=== PATIENT | male | born 1965 | race Caucasian/White ===

== ENCOUNTER 2016-10-04 10:06 | Inpatient (IN) | payer OTHER ==
[~2016-10-04] VITALS: Ht 180.3 cm; Wt 93.2 kg
[2016-10-04] VITALS (11 sets, daily range): BP systolic 118–174; BP diastolic 74–95
[2016-10-04] MEDS ORDERED: NS IV 1000 ML 1,000 ML IV SCH (10:44)
[2016-10-04] MEDS ORDERED: ONDANSETRON 4 MG/2 ML (SDV) Z0FRAN IVP PRN (10:45)
[2016-10-04] MEDS ORDERED: PATIENT MAY USE OWN MEDS, ALL PO SCH ×2 (10:45→15:45)
[2016-10-04] MEDS ORDERED: morphine INJ 10 MG/ML 1ML (SYR OR VIAL) IVP PRN (10:45)
[2016-10-04] MEDS ORDERED: NITROGLYCERIN SUBLINGUAL 0.4 MG TAB (NITROSTAT) SL PRN (10:45)
--- NOTE | 2016-10-04 10:50 | History & Physical-Hospitalist ---
HPI History of Present Illness: HPI/Chief Complaint CC: Chest pain HPI: This is a 51-year-old white male clinic patient of Dr. Lundberg's that [facility] the presents as a transfer to higher level of care for cardiology management due to elevated troponin with chest pain. He has a history of CAD with previous 2 stents placed at [facility] in [place] in 2010 and began having chest pain with the minimal activity at home prompted Dr. Lundberg to order labs at [facility] and the troponin was 0.082 but repeat this morning was 0.239 so she was instructed the patient to report to [facility] ER for further evaluation. EKG obtained showed no significant changes from prior and there was no elevation in the ST segments. He does have history of diabetes mellitus and currently cardiology is prepared for further evaluation likely cardiac catheterization. Source: patient Exam Limitations: no limitations Date Seen 10/04/16 Attending Physician Sera Milian Lisa A MD Referring Physician Date of Admission Home Medications & Allergies Home Medications Reviewed patient Home Medication Reconciliation Form Allergies Coded Allergies: No Allergy Information Available (Unverified , 10/04/16) Past Htmcsmz-Gkiozj-Nnckts Hx Patient Social History Employed/Student: unemployed Surgeries HX Surgeries: Yes Surgeries: Coronary Stent Respiratory Hx Respiratory Disorders: No Cardiovascular Hx Cardiovascular Disorders: Yes Cardiac Disorders: Coronary Artery Disease, High Cholesterol, Hypertension Neurological Hx Neurological Disorders: No Genitourinary Hx Genitourinary Disorders: No Gastrointestinal Hx Gastrointestinal Disorders: No Musculoskeletal Hx Musculoskeletal Disorders: No Endocrine Hx Endocrine Disorders: Yes Endocrine Disorders: Diabetes, Non-Insulin dep HEENT HX ENT Disorders: No Cancer Hx Cancer: No Review of Systems Constitutional: see HPI weakness EENTM: no symptoms reported Respiratory: dyspnea on exertion Cardiovascular: chest pain Gastrointestinal: no symptoms reported Genitourinary: no symptoms reported Musculoskeletal: no symptoms reported Skin: no symptoms reported Psychiatric/Neurological: No Symptoms Reported All Other Systems Reviewed Negative Unless Noted: Yes Physical Exam Physical Exam Vital Signs Capillary Refill : General Appearance: No Apparent Distress WD/WN Eyes: Bilateral Eye Normal Inspection, Bilateral Eye PERRL HEENT: PERRL/EOMI Normal ENT Inspection Pharynx Normal Neck: Full Range of Motion Normal Inspection Non Tender Supple Carotid Bruit Respiratory: Chest Non Tender Lungs Clear Normal Breath Sounds No Accessory Muscle Use No Respiratory Distress Cardiovascular: Regular Rate, Rhythm No Edema No Gallop No JVD No Murmur Normal Peripheral Pulses Gastrointestinal: Normal Bowel Sounds No Organomegaly No Pulsatile Mass Non Tender Soft Back: Normal Inspection No CVA Tenderness No Vertebral Tenderness Extremity: Normal Capillary Refill Normal Inspection Normal Range of Motion Non Tender No Calf Tenderness No Pedal Edema Neurologic/Psychiatric: Alert Oriented x3 No Motor/Sensory Deficits Normal Mood/Affect Skin: Normal Color Warm/Dry Lymphatic: No Adenopathy Assessment/Plan Admission Diagnosis Assessment: Non-ST elevation HI CAD with previous stents placed [address] [facility] in [place] 2010 Diabetes mellitus Assessment and Plan Plan: Appreciate cardiology management and likely will require cardiac catheter Monitor diabetes SERA MILIAN DO Oct 04, 2016 10:50
[2016-10-04] MEDS ORDERED: HEParin DRIP 25000 UNIT/500ML 500 ML IV SCH (11:49)
[2016-10-04] MEDS ORDERED: HEParin 1000 UNIT/ML (10ML VIAL) FOR BOLUS IV SCH (12:00)
--- NOTE | 2016-10-04 12:24 | Consultation-Cardiology ---
HPI-Cardiology Cardiology Consultation: Date of Consultation 10/04/16 Date of Admission Attending Physician Sera Milian DO Admitting Physician Latosha Lundberg MD Consulting Physician Teo SARMIENTO MD HPI: Chief Complaint: epigastric discomfort, chest pressure this is a 51-year-old gentleman with history of diabetes and significant coronary artery disease. He previously had PCI with 2 stents a few years ago. He has not seen a flatware maker since 2010. He presented with significant indigestion, epigastric discomfort and chest pressure. He thought his symptoms were acid reflux and he took Nexium. He has had previous "acid reflux" symptoms in the recent past but his current symptoms were much worse. No radiation. No exacerbating or relieving factors. No clear chest pain, shortness of breath. When I spoke to the referring physician from [facility], I requested bolus aspirin and Plavix and heparin 5000 units. I saw the patient as soon as he reached our hospital. His symptoms were much better. Review of Systems-Cardiology Review of Systems Constitutional: No As described under HPI, No no symptoms reported, No chills, No fever, No lightheadedness, No malaise, No tiredness, No weight loss, No weight gain, No other Eyes: No As described under HPI, No no symptoms reported, No blindness, No blurred vision, No contact lenses, No drainage, No decreased acuity, No foreign body sensation, No glasses, No inflammation, No pain, No photophobia, No previous injury, No shadows, No tunnel vision, No other, No vision change Ears/Nose/Throat: No As described under HPI, No no symptoms reported, No chronic hearing loss, No epistaxis, No ear discharge, No ear pain, No loose teeth, No mouth pain, No mouth swelling, No nasal drainage, No nose pain, No recent hearing loss, No throat pain, No throat swelling, No ulcerations, No other Respiratory: No no symptoms reported, No As described under HPI, No cough, No orthopnea, No shortness of breath, No SOB with excertion, No SOB at rest, No stridor, No wheezing, No other Cardiovascular: As described under HPI Gastrointestinal: As described under HPI Genitourinary: No no symptoms reported, No As described under HPI, No burning, No dysuria, No discharge, No frequency, No flank pain, No hematuria, No incontinence, No pain, No urgency, No other, No urine frequency changes, No urine coloration changes Musculoskeletal: No no symptoms reported, No As describe under HPI, No back pain, No gout, No joint pain, No joint swelling, No muscle pain, No muscle stiffness, No neck pain, No other Skin: No no symptoms reported, No As described under HPI, No change in color, No change in hair/nails, No dryness, No lesions, No lumps, No rash, No other, No skin related problems, No ulcerations, No rash on exposed areas, No ulcerations on exposed areas Psychiatric/Neurological: No As described under HPI, No anxiety, No depression , No emotional problems, No focal weakness, No headache, No no symptoms reported , No numbness, No other, No pre-existing deficit, No seizure, No syncope, No tingling, No tremors, No weakness Hematologic: No no symptoms reported, No As described under HPI, No anemia, No blood clots, No easy bleeding, No easy bruising, No swollen glands, No other, No bleeding abnormalities All Other Systems Reviewed Negative Unless Noted: Yes OSS-[id number]-Vyadql Hx Patient Social History Employed/Student: unemployed Past Medical History PMH As described under Assessment. Allergies and Home Medications Allergies Coded Allergies: No Allergy Information Available (Unverified , 10/04/16) Physical Exam-Cardiology Physical Exam Vital Signs/I&O Capillary Refill : Constitutional: appears stated ageNo apparent distress, well-developed well- nourished HEENT: No PERRL, No normal ENT inspection, No TMs normal, No pharynx normal, No scleral icterus (R), No scleral icterus (L), No pale conjunctivae (R), No pale conjunctivae (L), No photophobia, No TM abnormal (R), No TM abnormal (L), No pharyngeal erythema, No tonsillar exudate, No other, No discharge, No EOMI, No hearing is well preserved, No hard of hearing, No oral hygience is good, No ulceration, No xanthelasmas are seen Neck: No carotid bruit, carotid pulses are 2 + bilaterally Respiratory: No accessory muscle use, No respiratory distress, No chest tender , No chest expansion is symmetric, No chest is bilaterally symmetric, No lungs clear to percussion, No lungs clear to auscultation, No crackles, No rhonchi, No rales, No stridor, No wheezing, No pleural rub, No other Cardiovascular: No regular rate-rhythm, No irregularly irregular, No extra beats, No parasternal heave is noted, No JVD, No edema, No bradycardia, No tachycardia, No point of maximal impulse, No cardiac thrills are palpable, No S1 and S2, No gallop/S3, No gallop/S4, No diastolic murmur, No systolic murmur, No friction rub, No click, No other Gastrointestinal: No tender, No soft, No round, No distended, No pulsatile mass , No organomegaly, No guarding, No rebound, No tenderness, No hernia, No mass, No audible bowel sounds, No abnormal bowel sounds, No abdominal bruits, No spleenomegaly, No other Rectal: deferred Extremities: No normal range of motion, No non-tender, No normal inspection, No pedal edema, No calf tenderness, No normal capillary refill, No pelvis stable , No calf tenderness, No inflammation, No pedal edema, No slow capillary refill , No swelling, No other, No abrasion, No clubbing, No cyanosis, No ecchymosis, No laceration, No no lower extremity edema bilateral, No significant edema, No tenderness, No wound Neurologic/Psychiatric: No certified endoscopy technician II-XII nml as tested, No no motor/sensory deficits, alertNo normal mood/affect, oriented x 3No abnormal cerebellar tests , No abnormal certified endoscopy technician II-XII, No abnormal gait, No aphasia, No EOM palsy, No facial droop, No motor weakness, No sensory deficit, No depressed affect, No disoriented x 3, No other, No grossly intact, power is 5/5 both on sides Skin: No normal color, No warm/dry, No cyanosis, No cool, No diaphoresis, No damp, No ecchymosis, No jaundice, No mottled, No pallor, No rash, No tattoos/ piercings, No ulcerations, No rash on exposed areas, No ulcerations on exposed areas, No other ECG Impression ECG Initial ECG Rhythm: Normal Sinus Initial ECG Impression: Nonspecific Changes A/P-Cardiology Assessment/Admission Diagnosis non-ST elevation AK, diabetes, hypertension, hyperlipidemia Plan I spoke at length with the patient and the family. He has atypical symptoms which can occur in diabetic patients. Cardiac enzymes are abnormal. Working diagnosis is non-ST elevation AK. Coronary angiography is recommended. I discussed at length about coronary angiography and all risks and complications were explained in detail. Recent complication included bleeding, vascular damage, CVA, AK and even . Once the patient understood all the risks associated, informed consent will be signed. We will arrange coronary angiography and possible intervention this afternoon. We will continue dual antiplatelet therapy, anti-thrombin therapy with heparin, statin, beta cristiano and MANUEL inhibitor. Thank you for your consultation. Please call me if you have any questions. Alberto Sarmiento MD, FACP, FACC, FSCAI, FHRS, CCDS Interventional Cardiology Cardiac Electrophysiology Vascular Medicine and Endovascular Interventions Teo SARMIENTO MD Oct 04, 2016 12:24
--- NOTE | 2016-10-04 12:25 | Cardiac Procedure Note-CS/ASA ---
Pre-Procedure Note Pre-Op Procedure Note H&P Reviewed The H&P was reviewed, patient examined and no changes noted. Date H&P Reviewed: Oct 04, 2016 Time H&P Reviewed: 12:25 Conscious Sedation Pre-Proced Time Reviewed: 12:25 ASA Class: 3 Airway Mallampati Classification: (chevak appropriate class) I. II. III, IV Lungs Heart ASA score ASA 1: a normal healthy patient ASA 2: a patient with a mild systemic disease (mid diabetes, controlled hypertension, obesity ASA 3: a patient with a severe systemic disease that limits activity (angina , COPD, prior Myocardial infarction) ASA 4: a patient with an incapacitating disease that is a constant threat to life (CHF, renal failure) ASA 5: a moribund patient not expected to survive 24 hrs. (ruptured aneurysm) ASA 6: a declared brain patient whose organs are being harvested. For emergent operations, add the letter E after the classification Grade 1 Sedation Plan: Analgesia, Amnesia, Plan communicated to team members, Discussed options with patient/fam, Discussed risks with patient/fam Note The patient is an appropriate candidate to undergo the planned procedure, sedation, and anesthesia. The patient immediately re-assessed prior to indication. Teo MAIN MD Oct 04, 2016 12:25
--- NOTE | 2016-10-04 12:35 | Diagnostic Imaging Report ---
INDICATION: Reflux for six days. Chest pain. EXAMINATION: Chest dated 10/04/2016. FINDINGS: The heart is slightly prominent. Pulmonary vasculature is unremarkable in appearance. There is a vague rounded density in the right perihilar region which could be a vessel on end with a small nodule not excluded. The remaining lungs are clear. There is no pneumothorax. No effusions. No infiltrates. IMPRESSION: 1. Rounded density right perihilar region, likely a vessel on end. See above discussion. Followup if no priors available for comparison recommended. If this persists or increases in size, CT imaging could exclude a lung nodule. 2. Mild prominence of the heart. Dictated by: Dictated on workstation # [id number]
[2016-10-04] MEDS ORDERED: LIDOCAINE 1% INJ 20 ML (XYLOCAINE) VIAL ONE (12:49)
[2016-10-04] MEDS ORDERED: MIDAZOLAM 5 MG/5 ML (VERSED) VIAL ONE (12:49)
[2016-10-04] MEDS ORDERED: fentaNYL INJECTION 100 MCG/2 ML AMP ONE (12:49)
[2016-10-04] MEDS ORDERED: NS IV 1000 ML 1,000 ML ONE ×2 (12:50→15:34)
[2016-10-04] MEDS ORDERED: HEParin (CATH LAB) 2,000 ML IV ONE (12:50)
[2016-10-04 12:52] LABS: BASOPHILS % (AUTO) 0 % (0-10); EOSINOPHILS # (AUTO) 0.3 10^3/uL (0.0-0.3); EOSINOPHILS % (AUTO) 4 % (0-10); LYMPHOCYTES # (AUTO) 1.7 X 10^3 (1.0-4.0); LYMPHOCYTES % (AUTO) 24 % (12-44); MEAN CORPUSCULAR HEMOGLOBIN 29 PG (25-34); MEAN CORPUSCULAR HGB CONC 35 G/DL (32-36); MEAN CORPUSCULAR VOLUME 83 FL (80-99); MEAN PLATELET VOLUME 9.5 FL (7.4-10.4); MONOCYTES # (AUTO) 0.5 X 10^3 (0.0-1.0); MONOCYTES % (AUTO) 7 % (0-12); NEUTROPHILS # (AUTO) 4.7 X 10^3 (1.8-7.8); NEUTROPHILS % (AUTO) 65 % (42-75); PLATELET COUNT 211 10^3/uL (130-400); RED BLOOD COUNT 4.57 10^6/uL (4.35-5.85); RED CELL DISTRIBUTION WIDTH 13.2 % (10.0-14.5); WHITE BLOOD COUNT 7.2 10^3/uL (4.3-11.0)
[2016-10-04] MEDS ORDERED: NITROGLYCERIN DRIP 25 MG/D5W 250 ML IV ONE (12:52)
[2016-10-04] MEDS ORDERED: VERAPAMIL 5 MG/2 ML (CALAN) VIAL IV ONE (12:52)
[2016-10-04 13:01] LABS: PROTHROMBIN TIME PATIENT 12.6 SEC (12.2-14.7)
[2016-10-04 13:10] LABS: ALANINE AMINOTRANSFERASE 9 U/L (0-55); ALBUMIN 3.9 G/DL (3.2-4.5); ANION GAP 11 MMOL/L (5-14); ASPARTATE AMINO TRANSFERASE 11 U/L (5-34); BILIRUBIN,TOTAL 0.4 MG/DL (0.1-1.0); BLOOD UREA NITROGEN 16 MG/DL (7-18); BUN/CREATININE RATIO 19; CARBON DIOXIDE 21 MMOL/L (21-32); CHLORIDE 108 MMOL/L (98-107); CREATININE SERUM 0.86 MG/DL (0.60-1.30); GFR ESTIMATED > 60; GLUCOSE 135 MG/DL (70-105); POTASSIUM 4.2 MMOL/L (3.6-5.0); SODIUM 140 MMOL/L (135-145); TOTAL PROTEIN 6.6 G/DL (6.4-8.2)
[2016-10-04] MEDS ORDERED: ADENOSINE 3 MG/1 ML (ADENOSCAN) 30ML VIAL IV ONE (14:28)
[2016-10-04] MEDS ORDERED: MIDAZOLAM 2 MG/2 ML (VERSED) VIAL ONE (14:54)
--- NOTE | 2016-10-04 15:45 | Progress Note-Post Operative ---
Post-Operative Progess Note Pre-Operative Diagnosis non-ST elevation OK Post-Operative Diagnosis non-ST elevation OK, PTCA to OM1 Post-Op Procedure Note Date of Procedure: Oct 04, 2016 Name of Procedure: 1. Coronary angiography. 2. Left heart catheterization. 3. FFR to the RCA. 4. PTCA to OM1. Procedure Note/Findings severe diffuse disease in the entire segment of the LAD. Moderate to severe disease in the mid RCA. Severe diffuse disease in distal PDA and PL branch. FFR to the mid RCA lesions showed 0.86 which is acceptable therefore PCI deferred. Severe ostial OM1 stenosis successfully treated with PTCA. Severe in-stent restenosis of a previous stent in OM1 successfully treated with PTCA. Normal LV function. Anesthesia Type local anesthesia and conscious sedation Estimated blood loss (mL): 30 mL Packing: none Specimen(s) collected none Teo MAIN MD Oct 04, 2016 15:45
[2016-10-04] MEDS ORDERED: LOVA20TA2 PO (16:28)
[2016-10-04] MEDS ORDERED: CARV12.53 PO (16:28)
[2016-10-04] MEDS ORDERED: CARV25TA PO (16:28)
[2016-10-04] MEDS ORDERED: ASPI-586 PO (16:28)
[2016-10-04] MEDS ORDERED: METF1000 PO (16:28)
[2016-10-04] MEDS ORDERED: METF500T4 PO (16:28)
[2016-10-04] MEDS ORDERED: MULT-517 PO (16:28)
[2016-10-04] MEDS ORDERED: AMLO5TAB2 PO (16:28)
[2016-10-04] MEDS ORDERED: SITA50TA PO (16:28)
[2016-10-04] MEDS ORDERED: LORA10CA PO (16:29)
[2016-10-04] MEDS: NS IV 1000 ML 1,000 ML IV SCH (16:48)
[2016-10-04] MEDS ORDERED: ATORVASTATIN 80 MG (LIPITOR) TABLET PO SCH (21:00)
[2016-10-04] MEDS: meTOprolol TARTRATE 25 MG (LOPRESSOR) TABLET PO SCH (22:56)
[2016-10-05] VITALS: BP 127/76
[2016-10-05] MEDS: NS IV 1000 ML 1,000 ML IV SCH ×2 (02:00→11:41)
[2016-10-05 04:00] VITALS: BP 124/77
[2016-10-05 04:27] LABS: MEAN PLATELET VOLUME 9.5 FL (7.4-10.4); RED BLOOD COUNT 4.13 10^6/uL (4.35-5.85); RED CELL DISTRIBUTION WIDTH 13.3 % (10.0-14.5); WHITE BLOOD COUNT 8.4 10^3/uL (4.3-11.0)
[2016-10-05 04:57] LABS: ANION GAP 9 MMOL/L (5-14); BLOOD UREA NITROGEN 14 MG/DL (7-18); BUN/CREATININE RATIO 15; CALCIUM 8.5 MG/DL (8.5-10.1); CARBON DIOXIDE 23 MMOL/L (21-32); CHLORIDE 107 MMOL/L (98-107); CHOLESTEROL 165 MG/DL (< 200); CREATININE SERUM 0.91 MG/DL (0.60-1.30); DIRECT LDL 110 MG/DL (1-129); GFR ESTIMATED > 60; GLUCOSE 109 MG/DL (70-105); POTASSIUM 3.8 MMOL/L (3.6-5.0); SODIUM 139 MMOL/L (135-145); TRIGLYCERIDES 122 MG/DL (<150); VLDL CHOLESTEROL 24 MG/DL (5-40)
[2016-10-05 05:03] LABS: TROPONIN I < 0.30 NG/ML (<0.30)
[2016-10-05] MEDS ORDERED: FLU TRIvalent (5 YOA+) 2016-17 (AFLURIA) 0.5 ML IM ONE (07:45)
[2016-10-05 08:22] VITALS: BP 131/77
[2016-10-05] MEDS: meTOprolol TARTRATE 25 MG (LOPRESSOR) TABLET PO SCH (08:47)
[2016-10-05] MEDS ORDERED: CLOPIDOGREL 75 MG (PLAVIX) TABLET PO SCH (09:00)
[2016-10-05] MEDS ORDERED: ASPIRIN E.C. 81 MG (ECOTRIN) TAB PO SCH (09:00)
[2016-10-05] MEDS ORDERED: ASPIRIN E.C. 325 MG (ECOTRIN) TABLET PO SCH (09:00)
[2016-10-05] MEDS ORDERED: lisINopril 5 MG (PRINIVIL) TABLET PO SCH (09:00)
--- NOTE | 2016-10-05 10:47 | Discharge Summary-Hospitalist ---
Diagnosis/Chief Complaint Date of Admission Oct 04, 2016 at 11:15 Date of Discharge 10/05/2016 Discharge Date: Oct 05, 2016 Admission Diagnosis Assessment: Non-ST elevation PR CAD with previous stents placed 2 at [facility] 2010 Diabetes mellitus Discharge Diagnosis Assessment: Non-ST elevation PR s/p balloon angiography CAD with previous stents placed 2 at [facility] 2010 Diabetes mellitus Reason Hospital Visit/Course CC: Chest pain HPI: This is a 51-year-old white male clinic patient of Dr. Lundberg's [facility] the presents as a transfer to higher level of care for cardiology management due to elevated troponin with chest pain. He has a history of CAD with previous 2 stents placed at [facility] in 2010 and began having chest pain with the minimal activity at home. Dr Farias ordered troponins as outpatient which trended up to 0.239 prompting him to present to [facility] for evaluation. EKG was unchanged from past with changes in the ST segments. He was transfer to [facility] for cardiology evaluation and cardiac catheterization. Discharge Summary Procedures Cardiac Catheterization, PCI of OM1 Consultations Dr. Sarmiento, Cardiology Discharge Physical Examination Allergies: Coded Allergies: No Allergy Information Available (Unverified , 10/04/16) Vitals & I&Os Vital Signs Date Time Temp Pulse Resp B/P Pulse Ox O2 Delivery O2 Flow Rate FiO2 10/05/16 09:00 97 Room Air 10/05/16 08:22 98.5 76 18 131/77 10/04/16 14:20 2.00 Hospital Course Mr Nolasco was admitted for cardiac catheterization and was found to have restenosis of OM1 with balloon angiography. His symptoms of chest pain improved significantly following the procedure and his vitals and labs were stable throughout the night. He was medically optimized prior to discharge with DAPT, high intensity statin, beta cristiano, and MANUEL-I. Labs (last 24 hrs) Laboratory Tests 10/04/16 12:43: Activated Partial Thromboplast Time 38H, Alanine Aminotransferase (ALT/SGPT) 9, Albumin 3.9, Alkaline Phosphatase 55, Anion Gap 11, Aspartate Amino Transf (AST/ SGOT) 11, BUN/Creatinine Ratio 19, Basophils # (Auto) 0.0, Basophils (%) (Auto) 0, Blood Urea Nitrogen 16, Calcium Level 9.0, Carbon Dioxide Level 21, Chloride Level 108H, Creatinine 0.86, Eosinophils # (Auto) 0.3, Eosinophils (%) (Auto) 4 , Estimat Glomerular Filtration Rate > 60, Glucose Level 135H, Hematocrit 38L, Hemoglobin 13.1L, INR Comment 1.0, Lymphocytes # (Auto) 1.7, Lymphocytes (%) ( Auto) 24, Mean Corpuscular Hemoglobin 29, Mean Corpuscular Hemoglobin Concent 35 , Mean Corpuscular Volume 83, Mean Platelet Volume 9.5, Monocytes # (Auto) 0.5, Monocytes (%) (Auto) 7, Neutrophils # (Auto) 4.7, Neutrophils (%) (Auto) 65, Platelet Count 211, Potassium Level 4.2, Prothrombin Time 12.6, Red Blood Count 4.57, Red Cell Distribution Width 13.2, Sodium Level 140, Total Bilirubin 0.4, Total Protein 6.6, Troponin I < 0.30, White Blood Count 7.2 10/04/16 16:47: Glucometer 97 10/04/16 17:18: Troponin I < 0.30 10/04/16 22:57: Glucometer 122H 10/05/16 03:50: Anion Gap 9, BUN/Creatinine Ratio 15, Blood Urea Nitrogen 14, Calcium Level 8.5 , Carbon Dioxide Level 23, Chloride Level 107, Cholesterol Level 165, Creatinine 0.91, Estimat Glomerular Filtration Rate > 60, Glucose Level 109H, HDL Cholesterol 34L, Hematocrit 35L, Hemoglobin 11.9L, LDL Cholesterol Direct 110, Mean Corpuscular Hemoglobin 29, Mean Corpuscular Hemoglobin Concent 34, Mean Corpuscular Volume 84, Mean Platelet Volume 9.5, Platelet Count 216, Potassium Level 3.8, Red Blood Count 4.13L, Red Cell Distribution Width 13.3, Sodium Level 139, Triglycerides Level 122, Troponin I < 0.30, VLDL Cholesterol 24, White Blood Count 8.4 Pending Labs Laboratory Tests 10/05/16 03:50: Anion Gap 9, BUN/Creatinine Ratio 15, Blood Urea Nitrogen 14, Calcium Level 8.5 , Carbon Dioxide Level 23, Chloride Level 107, Cholesterol Level 165, Creatinine 0.91, Estimat Glomerular Filtration Rate > 60, Glucose Level 109, HDL Cholesterol 34, Hematocrit 35, Hemoglobin 11.9, LDL Cholesterol Direct 110, Mean Corpuscular Hemoglobin 29, Mean Corpuscular Hemoglobin Concent 34, Mean Corpuscular Volume 84, Mean Platelet Volume 9.5, Platelet Count 216, Potassium Level 3.8, Red Blood Count 4.13, Red Cell Distribution Width 13.3, Sodium Level 139, Triglycerides Level 122, Troponin I < 0.30, VLDL Cholesterol 24, White Blood Count 8.4 Discussion & Recommendations Discussed need to comply with new medications at discharge and to follow up with his PCP and Heel Attacher this week. He did report he does not have insure and will have difficulty affording his medications. Will attempt to fill as many from $[employer] as able but discussed risk of noncompliance with patient. Discharge Home Medications: Active Scripts Active Lisinopril 5 Mg Tablet 5 Mg PO DAILY Atorvastatin Calcium 80 Mg Tablet 80 Mg PO HS Clopidogrel (Clopidogrel Bisulfate) 75 Mg Tablet 75 Mg PO DAILY Claritin (Loratadine) 10 Mg Capsule 10 Mg PO DAILY Aspir 81 (Aspirin) 81 Mg Tablet.dr 81 Mg PO DAILY Carvedilol 25 Mg Tablet 25 Mg PO DAILY Carvedilol 12.5 Mg Tablet 12.5 Mg PO HS Lovastatin 20 Mg Tablet 20 Mg PO DAILY Metformin HCl 500 Mg Tablet 500 Mg PO UD WITH SUPPER Metformin HCl 1,000 Mg Tablet 1,000 Mg PO BID Januvia (Sitagliptin Phosphate) 50 Mg Tablet 50 Mg PO DAILY Men's Multi-Vitamin (Multivitamin) 1 Each Tablet 1 Each PO DAILY Of note: lovastatin not on discharge med list. Unable to delete from above list. Condition at discharge Stable Instructions to patient/family Please see electonic discharge instructions given to patient. Clinical Quality Measures DVT/VTE Risk/Contraindication: Risk Factor Score Per Nursin RFS Level Per Nursing on Admit: 1=Low/No VTE PPX NISH SCHULTZ MD Oct 05, 2016 10:47
[2016-10-05] MEDS ORDERED: CLOP75TA28 PO (11:20)
[2016-10-05] MEDS ORDERED: LISI-556 PO (11:20)
[2016-10-05] MEDS ORDERED: ATOR80TA76 PO (11:20)
[2016-10-05 12:00] VITALS: BP 124/76
--- NOTE | 2016-10-05 12:16 | Cardiology Progress Note ---
Cardiology SOAP Progress Note Subjective: no cardiac complaints Objective: I&O/Vital Signs Vital Sign - Last 12Hours 10/05/16 10/05/16 12:00 12:35 Temp 98.5 Pulse 72 72 Resp 18 18 B/P 124/76 124/76 Pulse Ox 97 97 O2 Delivery Room Air O2 Flow Rate 2.00 Intake and Output 10/04/16 23:59 Intake Total 1190 ml Output Total 200 ml Balance 990 ml Weight (Pounds): 205 Weight (Ounces): 8.0 Weight (Calculated Kilograms): 93.055859 Constitutional: appears stated ageNo apparent distress, well-developed well- nourished Respiratory: No accessory muscle use, No respiratory distress, No chest tender , No chest expansion is symmetric, No chest is bilaterally symmetric, No lungs clear to percussion, No lungs clear to auscultation, No crackles, No rhonchi, No rales, No stridor, No wheezing, No pleural rub, No other Cardiovascular: No regular rate-rhythm, No irregularly irregular, No extra beats, No parasternal heave is noted, No JVD, No edema, No bradycardia, No tachycardia, No point of maximal impulse, No cardiac thrills are palpable, No S1 and S2, No gallop/S3, No gallop/S4, No diastolic murmur, No systolic murmur, No friction rub, No click, other (right radial pulse normal) Gastrointestional: No tender, No soft, No round, No distended, No pulsatile mass, No organomegaly, No guarding, No rebound, No tenderness, No hernia, No mass, No audible bowel sounds, No abnormal bowel sounds, No abdominal bruits, No spleenomegaly, No other Extremities: No normal range of motion, No non-tender, No normal inspection, No pedal edema, No calf tenderness, No normal capillary refill, No pelvis stable , No calf tenderness, No inflammation, No pedal edema, No slow capillary refill , No swelling, No other, No abrasion, No clubbing, No cyanosis, No ecchymosis, No laceration, No no lower extremity edema bilateral, No significant edema, No tenderness, No wound Neurologic/Psychiatric: No musical string maker II-XII nml as tested, No no motor/sensory deficits, alertNo normal mood/affect, oriented x 3No abnormal cerebellar tests , No abnormal musical string maker II-XII, No abnormal gait, No aphasia, No EOM palsy, No facial droop, No motor weakness, No sensory deficit, No depressed affect, No disoriented x 3, No other, No grossly intact, power is 5/5 both on sides Skin: No normal color, No warm/dry, No cyanosis, No cool, No diaphoresis, No damp, No ecchymosis, No jaundice, No mottled, No pallor, No rash, No tattoos/ piercings, No ulcerations, No rash on exposed areas, No ulcerations on exposed areas, No other Results/Procedures: Labs Laboratory Tests 10/04/16 22:57: Glucometer 122H 10/05/16 03:50: Anion Gap 9, BUN/Creatinine Ratio 15, Blood Urea Nitrogen 14, Calcium Level 8.5 , Carbon Dioxide Level 23, Chloride Level 107, Cholesterol Level 165, Creatinine 0.91, Estimat Glomerular Filtration Rate > 60, Glucose Level 109H, HDL Cholesterol 34L, Hematocrit 35L, Hemoglobin 11.9L, LDL Cholesterol Direct 110, Mean Corpuscular Hemoglobin 29, Mean Corpuscular Hemoglobin Concent 34, Mean Corpuscular Volume 84, Mean Platelet Volume 9.5, Platelet Count 216, Potassium Level 3.8, Red Blood Count 4.13L, Red Cell Distribution Width 13.3, Sodium Level 139, Triglycerides Level 122, Troponin I < 0.30, VLDL Cholesterol 24, White Blood Count 8.4 10/05/16 11:25: Glucometer 155H A/P: Assessment/Dx: non-ST elevation MA, diabetes, hypertension, hyperlipidemia Plan: Coronary angiography with PTCA to ostial OM1 and to ISR in OM1 stent. Good results. No bump in troponin post PTCA. Dual anti-platelet therapy x 1 year. BB, MANUEL inhibitor, high dose statin. Can be discharged to follow with Dr Lundberg and can follow me for cardiology services if required. Appreciate Dr Milian and Dr Silveira help in this patient. Thank you for your consultation. Please call me if you have any questions. Alberto Sarmiento MD, FACP, FACC, FSCAI, FHRS, CCDS Interventional Cardiology Cardiac Electrophysiology Vascular Medicine and Endovascular Interventions Teo SARMIENTO MD Oct 05, 2016 12:16 Sodium Level 139, Triglycerides Level 122, Troponin I < 0.30, VLDL Cholesterol 24, White Blood Count 8.4 10/05/16 11:25: Glucometer 155H A/P: Assessment/Dx: non-ST elevation MA, diabetes, hypertension, hyperlipidemia Plan: I spoke at length with the patient and the family. He has atypical symptoms which can occur in diabetic patients. Cardiac enzymes are abnormal. Working diagnosis is non-ST elevation MA. Coronary angiography is recommended. I discussed at length about coronary angiography and all risks and complications were explained in detail. Recent complication included bleeding, vascular damage, CVA, MA and even . Once the patient understood all the risks associated, informed consent will be signed. We will arrange coronary angiography and possible intervention this afternoon. We will continue dual antiplatelet therapy, anti-thrombin therapy with heparin, statin, beta cristiano and MANUEL inhibitor. Thank you for your consultation. Please call me if you have any questions. Alberto Sarmiento MD, FACP, FACC, FSCAI, FHRS, CCDS Interventional Cardiology Cardiac Electrophysiology Vascular Medicine and Endovascular Interventions Teo SARMIENTO MD Oct 05, 2016 12:16
[2016-10-05 12:35] VITALS: BP 124/76
--- NOTE | 2016-10-05 16:13 | CARDIAC CATHETERIZATION ---
CORONARY ANGIOGRAPHY AND PTCA REPORT PROCEDURE PHYSICIAN: MANUEL MAIN DATE OF PROCEDURE: 10/04/2016 INDICATION: Non-ST elevation VA. PREOPERATIVE DIAGNOSIS: Non-ST elevation VA. POSTOPERATIVE DIAGNOSIS: Non-ST elevation VA, balloon angioplasty to first obtuse marginal artery. FFR to the RCA. HISTORY: Mr. Nolasco is a 51-year-old gentleman who has significant history of diabetes, hypertension, hyperlipidemia, coronary artery disease with two stents placed 3 or 4 years ago. He presented to [facility] with atypical symptoms of chest pressure and indigestion. Troponins were positive. Working diagnosis was non-ST elevation VA and he was transferred urgently to our hospital. Urgent coronary angiography was recommended. He was given a bolus of aspirin, Plavix and heparin. PROCEDURE PERFORMED: 1. Coronary angiography. 2. Left heart catheterization. 3. FFR of the mid RCA. 4. PTCA to in-stent restenosis in the distal OM1. 5. PTCA to ostium of 1st OM. SPECIMENS: None. COMPLICATIONS: None. ESTIMATED BLOOD LOSS: 30 mL. Anticoagulation: IV heparin. Contrast: 200 mL of Isovue. Fluoroscopy time: 23 minutes. Fluoroscopy dose: 1896 mGy PROCEDURE DETAILS: The patient was brought to the [facility] after informed consent was taken. All the risks and complications were explained in detail. He was draped and prepped in the usual sterile fashion. Access was gained in the right radial artery with a 6-Kiswahili sheath. Coronary angiography and left heart catheterization was performed with a Gordy catheter. Left coronary artery was engaged with a JL4 diagnostic catheter. FINDINGS: 1. Left heart catheterization: LV pressure 97/1 mmHg. LVEDP 9 mmHg, Aortic pressure 90/57 mmHg, normal LV function with no significant wall motion abnormalities. No gradient across the aortic valve. 2. RCA shows tandem moderate lesions in the midsegment. Midsegment severity is 50 to 70%. There is severe diffuse distal disease in the PDA as well as the PL branch with ROSIO 2 flow however, these are very small vessels with diameter around 1 to 1.5 mm 3. Left main: Patent. 4. LAD has diffuse severe disease in the entire length especially the mid and distal segments. 5. Left circumflex artery: There is no significant disease in the proximal and mid segment. There is a patent stent in the distal left circumflex artery with diffuse distal disease. There is intermediate sized first obtuse marginal artery, which has severe 90% stenosis at the ostium. There is another stent, in the mid to distal segment of this particular obtuse marginal artery, which has severe in stent stenosis 90% in the distal part of the stent. The stent seems to have jailed a previous branch which is subtotally occluded and filled by left to left collaterals. The obtuse marginal artery as well as the left circumflex artery has diffuse distal disease. Of note the collaterals from the left system to the right as well as left to left collaterals as well. RECOMMENDATIONS: 1. FFR to the mid RCA is recommended. 2. PTCA to in-stent stenosis in the obtuse marginal artery stent is recommended. 3. PTCA to the ostium of the first obtuse marginal artery is recommended. INTERVENTIONAL DETAILS: We took a JR4 guide catheter and pressure wire as a guidewire. Heparin was given for anticoagulation. ACT was over 200 seconds. There were 2 tandem lesions in the mid RCA which were both moderate to severe. Stenosis severity was 50 to 70%. There was ROSIO 2 to ROSIO 3 flow in the distal vessel. We crossed the lesion in the mid RCA and placed the wire in the PL branch. We then started adenosine at 140 mcg/kg per minute. Baseline FFR was 0.95. After 2 minutes of adenosine lowest FFR was 0.86 which is acceptable therefore PCI was deferred. The pressure wire was pulled out and angiography revealed no vascular complication. We then took an EBU 3.5 guide catheter and used the same pressure wire as a guidewire. The lesion in the left circumflex artery and the obtuse marginal artery were crossed with difficulty due to some tortuosity. The distal tip of the pressure wire which is now the guidewire was placed in the distal aspect of the obtuse marginal artery. We then took a 2.5 x 12 Emerge semi-compliant balloon. We did two inflations in the distal aspect of the obtuse marginal artery stent. The first inflation was for 14 atmospheres for 23 seconds and the second was for 12 atmospheres for 62 seconds. Some residual stenosis was noted. We then pulled the balloon back to where the severe ostial disease of the obtuse marginal artery was. We performed an inflation for 12 atmospheres at 60 seconds which showed good angiographic results. However, there either plaque displacement or spasm at the distal aspect of the balloon inflation that we just did. We therefore gave nitroglycerin 150 mcg intracoronary with some improvement. We then took the same 2 x 2.5 balloon and did a gentle inflation for 6 atmospheres for a minute with significant improvement in flow as well as no significant residual stenosis. We then took the same balloon and went into the distal aspect of the obtuse marginal artery within the in-stent restenosis segment and did a high pressure balloon dilatation at 16 atmospheres for 50 seconds. This improved the distal segment better with mild residual stenosis of around 20%. This result was acceptable. We therefore pulled the balloon and wire back and post angiography revealed ROSIO 3 flow with mild residual stenosis in the distal segment of the obtuse marginal artery stent and no significant residual stenosis in the ostium of the obtuse marginal artery. The patient tolerated the procedure well. Did not have any complication. The radial site was closed with a radial band. IMPRESSION/CONCLUSION: 1. Severe coronary artery disease with severe diffuse disease in the entire length of the LAD, which is not amendable to PCI or bypass surgery. 2. Severe in-stent restenotic of a previous obtuse marginal artery stent, severe ostial disease of the obtuse marginal artery which both lesions were successfully treated with PTCA only. Another stent in the distal left circumflex artery is patent. There is diffuse disease in the distal vessels of the left circumflex artery as well as the obtuse marginal artery. 3. RCA has tandem moderate lesions in the mid aspect, which were negative by FFR. There is diffuse severe disease in the distal PDA as well as the PLV branch. These vessels were less than 1.5 mm. therefore PCI was not entertained. The patient will continue aspirin, Plavix for at least one year. Also aggressive of prevention measures of beta cristiano, MANUEL inhibitor and high-dose statin will be recommended. The patient will be transferred back to the Stepdown and IV fluids will continue. We will check CBC, BNP and troponin in the morning. Echocardiogram will also be recommended. Job ID: [id number] Dictated Date: 10/04/2016 15:39:41 Intensive Care Medicine Specialist Date: 10/05/2016 15:39:03 / chely GRIFFIN
== END 2016-10-05 12:35 | disposition home or self-care (01) | DRG 251 ==
LOC: ICU 11:15
PROVIDERS: ADMIT Internal Medicine; ATTEND Internal Medicine
PROC: 027 Heart and Great Vessels, Dilation (ICD-10-PCS; principal; 2016-10-04)
PROC: 4A023N7 Measurement of Cardiac Sampling and Pressure, Left Heart, Percutaneous Approach (ICD-10-PCS; 2016-10-04)
PROC: B2111ZZ Fluoroscopy of Multiple Coronary Arteries using Low Osmolar Contrast (ICD-10-PCS; 2016-10-04)
DX: I21.4 Non-ST elevation (NSTEMI) myocardial infarction (principal); I25.10 Atherosclerotic heart disease of native coronary artery without angina pectoris; E11.9 Type 2 diabetes mellitus without complications; E78.00 Pure hypercholesterolemia, unspecified; E78.5 Hyperlipidemia, unspecified; I10 Essential (primary) hypertension; Z95.5 Presence of coronary angioplasty implant and graft; T82.855A Stenosis of coronary artery stent, initial encounter
CPT/HCPCS: 36415; 71010; 80048; 80053; 80061; 82962; 84484; 85025; 85027; 85347; 85610; 85730; 92920; 93005; 93458; 93571

== ENCOUNTER 2017-09-08 12:34 | Observation (INO) | payer SELFPAY ==
[2017-09-08] VITALS (8 sets, daily range): BP systolic 126–154; BP diastolic 72–83
[~2017-09-08] VITALS: Ht 180.3 cm; Wt 93.0 kg
[~2017-09-08 12:34] MED LIST: AMLO5TAB2 PO; ASPI-586 PO; ATOR80TA76 PO; CARV12.53 PO; CARV25TA PO; CLOP75TA28 PO; LISI-556 PO; LORA10CA PO; LOVA20TA2 PO; METF1000 PO; METF500T4 PO; MULT-517 PO; SITA50TA PO
[2017-09-08] MEDS ORDERED: ASPIRIN 81 MG CHEW (CHILDREN'S ASA) PO ONE (12:45)
[2017-09-08] MEDS ORDERED: NITROGLYCERIN 0.4 MG SL TABS BTL 25'S SL PRN ×2 (12:45→16:45)
--- NOTE | 2017-09-08 12:49 | ED Chest Pain ---
General Stated Complaint: LIGHT HEADED,CHEST TIGHTNESS Source: patient, old records Exam Limitations: no limitations History of Present Illness Date Seen by Provider: Sep 08, 2017 Time Seen by Provider: 12:42 Initial Comments Patient presents to ER by private conveyance with a chief complaint that about a week ago he started experiencing some sharp throbbing pain in his right sided chest. It went away on its own after about half an hour so he didn't think anything of it. However today's having lightheadedness and dizziness described as being off balance, cough, mild shortness of breath and again that right- sided chest pain that radiates from his right shoulder down to his manubrium. He is also expressing today some tightness and tenderness bilateral trapezius muscles. He has several flu exposures. He's had no fevers but he says he has had some chills. Allergies and Home Medications Allergies Coded Allergies: No Allergy Information Available (Unverified , 10/04/16) Home Medications Aspirin 81 Mg Tablet.dr, 81 MG PO DAILY, #1 Prescribed by: LATISHA NDIAYE on 10/04/16 1628 Atorvastatin Calcium 80 Mg Tablet, 80 MG PO HS, #30 Prescribed by: NISH SCHULTZ on 10/05/16 1120 Carvedilol 12.5 Mg Tablet, 12.5 MG PO HS, #1 Prescribed by: LATISHA NDIAYE on 10/04/16 1628 Carvedilol 25 Mg Tablet, 25 MG PO DAILY, #1 Prescribed by: LATISHA NDIAYE on 10/04/16 1628 Clopidogrel Bisulfate 75 Mg Tablet, 75 MG PO DAILY, #30 Prescribed by: NISH SCHULTZ on 10/05/16 1120 Lisinopril 5 Mg Tablet, 5 MG PO DAILY, #30 Prescribed by: NISH SCHULTZ on 10/05/16 1120 Loratadine 10 Mg Capsule, 10 MG PO DAILY, #1 Prescribed by: LATISHA NDIAYE on 10/04/16 1629 Metformin HCl 1,000 Mg Tablet, 1,000 MG PO BID, #1 Prescribed by: LATISHA NDIAYE on 10/04/16 1628 Metformin HCl 500 Mg Tablet, 500 MG PO UD, #1 WITH SUPPER Prescribed by: LATISHA NDIAYE on 10/04/16 1628 Multivitamin 1 Each Tablet, 1 EACH PO DAILY, #1 Prescribed by: LATISHA NDIAYE on 10/04/161627 Sitagliptin Phosphate 50 Mg Tablet, 50 MG PO DAILY, #1 Prescribed by: LATISHA NDIAYE on 10/04/168 Review of Systems Constitutional: chills, No diaphoresis, No fever, malaise EENTM: No Blurred Vision, No Double Vision Respiratory: Cough, Denies Shortness of Air, Denies Wheezing Cardiovascular: See HPI, Chest Pain, Denies Edema, Denies Palpitations, Denies Syncope Gastrointestinal: Denies Abdomen Distended, Denies Abdominal Pain, Denies Nausea Past Xzqbifc-Sviudp-Mrwjly Hx Patient Social History Alcohol Use: Denies Use Recreational Drug Use: No Smoking Status: Never a Smoker Recent Foreign Travel: No Contact w/Someone Who Travel: No Recent Hopitalizations: No Seasonal Allergies Seasonal Allergies: Yes Surgeries Surgeries: Coronary Stent Respiratory History of Respiratory Disorde: No Currently Using CPAP: No Currently Using BIPAP: No Cardiovascular History of Cardiac Disorders: Yes (2 STENTS) Cardiac Disorders: Coronary Artery Disease, High Cholesterol, Hypertension Neurological History of Neurological Disord: No Genitourinary History of Genitourinary Disor: No Gastrointestinal History of Gastrointestinal Di: No Musculoskeletal History of Musculoskeletal Dis: No Endocrine Endocrine Disorders: Diabetes, Non-Insulin dep HEENT History of HEENT Disorders: No Cancer History of Cancer: No Psychosocial History of Psychiatric Problem: No Integumentary History of Skin or Integumenta: No Family Medical History Family Medial History: Diabetes mellitus 19 FATHER 19 MOTHER G8 BROTHER Hypercholesterolemia G8 BROTHER Hypertension 19 FATHER 19 MOTHER G8 BROTHER Physical Exam Vital Signs Capillary Refill : General Appearance: No Apparent Distress, WD/WN HEENT: PERRL/EOMI, TMs Normal, Pharynx Normal, Other (nasal congestion with scant clear rhinorrhea) Neck: Full Range of Motion, Normal Inspection, Non Tender, Supple, Lymphadenopathy (L), Lymphadenopathy (R) (mild shotty bilateral lymphadenopathy) Respiratory: Chest Non Tender, Lungs Clear, Normal Breath Sounds, No Accessory Muscle Use, No Respiratory Distress Cardiovascular: Regular Rate, Rhythm, No Edema, No Gallop, No JVD, Normal Peripheral Pulses Gastrointestinal: Normal Bowel Sounds, Non Tender, Soft Neurologic/Psychiatric: Alert, Oriented x3 Skin: Normal Color, Warm/Dry Progress/Results/Core Measures Results/Orders Lab Results Laboratory Tests Test 09/08/17 13:06 Range/Units White Blood Count 8.5 4.3-11.0 10^3/uL Red Blood Count 4.54 4.35-5.85 10^6/uL Hemoglobin 12.9 L 13.3-17.7 G/DL Hematocrit 37 L 40-54 % Mean Corpuscular Volume 82 80-99 FL Mean Corpuscular Hemoglobin 28 25-34 PG Mean Corpuscular Hemoglobin Concent 35 32-36 G/DL Red Cell Distribution Width 13.1 10.0-14.5 % Platelet Count 239 130-400 10^3/uL Mean Platelet Volume 9.2 7.4-10.4 FL Neutrophils (%) (Auto) 70 42-75 % Lymphocytes (%) (Auto) 18 12-44 % Monocytes (%) (Auto) 8 0-12 % Eosinophils (%) (Auto) 3 0-10 % Basophils (%) (Auto) 1 0-10 % Neutrophils # (Auto) 6.0 1.8-7.8 X 10^3 Lymphocytes # (Auto) 1.5 1.0-4.0 X 10^3 Monocytes # (Auto) 0.7 0.0-1.0 X 10^3 Eosinophils # (Auto) 0.3 0.0-0.3 10^3/uL Basophils # (Auto) 0.1 0.0-0.1 10^3/uL Prothrombin Time 12.6 12.2-14.7 SEC INR Comment 0.9 0.8-1.4 Activated Partial Thromboplast Time 30 24-35 SEC Sodium Level 136 135-145 MMOL/L Potassium Level 5.0 3.6-5.0 MMOL/L Chloride Level 103 98-107 MMOL/L Carbon Dioxide Level 24 21-32 MMOL/L Anion Gap 9 5-14 MMOL/L Blood Urea Nitrogen 18 7-18 MG/DL Creatinine 1.11 0.60-1.30 MG/DL Estimat Glomerular Filtration Rate > 60 BUN/Creatinine Ratio 16 Glucose Level 248 H 70-105 MG/DL Calcium Level 9.4 8.5-10.1 MG/DL Magnesium Level 1.6 L 1.8-2.4 MG/DL Total Bilirubin 0.4 0.1-1.0 MG/DL Aspartate Amino Transf (AST/SGOT) 10 5-34 U/L Alanine Aminotransferase (ALT/SGPT) 13 0-55 U/L Alkaline Phosphatase 64 40-136 U/L Myoglobin 49.0 10.0-92.0 NG/ML Troponin I < 0.30 <0.30 NG/ML Total Protein 7.2 6.4-8.2 GM/DL Albumin 4.0 3.2-4.5 GM/DL My Orders Orders - KENIA TOIRBIO Ekg Tracing (09/08/17 12:36) Influenza A And B Antigens (09/08/17 12:49) Medications Given in ED Current Medications Medications Dose Ordered Sig/Paddy Route Start Time Stop Time Status Last Admin Dose Admin Aspirin 324 mg ONCE ONCE PO 09/08/17 12:45 09/08/17 12:46 DC 09/08/17 12:56 324 MG Progress Note : Time: 13:06 Progress Note Cardiogenic pain versus possible bronchitis/pneumonitis/pleurisy. We will initiate a cardiac workup to include aspirin. His pain is not there at this moment so nitroglycerin is not indicated. Most recent heart catheter by September 2016 in STEMI where he did a balloon angioplasty of the first obtuse marginal artery. Patient also had stents placed 2 in 2010. ECG Initial ECG Impression Date: Sep 08, 2017 Initial ECG Impression Time: 13:07 Initial ECG Rate: 85 Initial ECG Rhythm: Normal Sinus Initial ECG Intervals: DC (148) Initial ECG Impression: Normal Initial ECG Comparisson: Unchanged Comment No T-wave elevation or depression. Diagnostic Imaging Diagonstic Imaging: Xray Plain Films/CT/US/NM/MRI: chest Comments NAME: JOSH MALLOY MED REC#: [id number] PHYSICIAN: MUSTAPHA HAILE APRN CC: MUSTAPHA HAILE APRN; PATIENCE RODRIGUEZ MD Page 1 of 1 RADIOLOGY REPORT VIA [place], [place] CC: MUSTAPHA HAILE APRN; PATIENCE RODRIGUEZ MD Page 1 of 1 RADIOLOGY REPORT NAME: JOSH MALLOY MED REC#: [id number] PT STATUS: REG ER : 1965 PHYSICIAN: MUSTAPHA HAILE APRN ADMIT DATE: 09/08/17/ER Signed Date of Exam: 09/08/17 CHEST 1 VIEW, AP/PA ONLY INDICATION: Chest pain. Time of exam: 1:18 PM Correlation is made with prior study from 10/04/2016. FINDINGS: The heart size is normal. The lungs are clear. No pleural effusion or pneumothorax is identified. The pulmonary vascularity is normal. IMPRESSION: No acute abnormality detected. Dictated by: Dictated on workstation # [id number] Dict: 09/08/17 1333 Trans: 09/08/17 1335 Interpreted by: PATIENCE RODRIGUEZ MD Electronically signed by: PATIENCE RODRIGUEZ MD 09/08/17 1335 Reviewed: Reviewed by Me Departure Communication (Admissions) Time/Spoke to Admitting Phy: 14:[address] Armenta: Discussed case lab imaging and findings as well as EKG and Dr. Dooley plan to overnight observe. He will see the patient. Time/Spoke to Consulting Phy: 14:00 Communication/Consulting Dr. Sarmiento; discussed case lab imaging findings and given the chronicity the option to observe versus all up outpatient and he recommends observation. We discussed the likelihood that this may represent more of a myalgias/pleuritic pain than cardiogenic but given his recent atherogenic history he would prefer to observe the patient overnight. Impression Impression: Primary Impression: Chest pain Qualified Codes: R07.9 - Chest pain, unspecified Disposition: 09 ADMITTED INPATIENT Condition: Stable Admissions Decision to Admit Reason: Admit from ER (General) Decision to Admit/Date: Sep 08, 2017 Time/Decision to Admit Time: 14:02 Departure-Patient Inst. Referrals: MASSIEL VILLATORO MD (PCP) Primary Care Physician Copy Copies To 1: MASSIEL VILLATORO MD Copies To 2: Teo SARMIENTO MD, TITUS J Sep 08, 2017 12:49
[2017-09-08 13:12] LABS: BASOPHILS # (AUTO) 0.1 10^3/uL (0.0-0.1); BASOPHILS % (AUTO) 1 % (0-10); EOSINOPHILS # (AUTO) 0.3 10^3/uL (0.0-0.3); EOSINOPHILS % (AUTO) 3 % (0-10); HEMATOCRIT 37 % (40-54); HEMOGLOBIN 12.9 G/DL (13.3-17.7); LYMPHOCYTES # (AUTO) 1.5 X 10^3 (1.0-4.0); LYMPHOCYTES % (AUTO) 18 % (12-44); MEAN CORPUSCULAR HEMOGLOBIN 28 PG (25-34); MEAN CORPUSCULAR HGB CONC 35 G/DL (32-36); MEAN CORPUSCULAR VOLUME 82 FL (80-99); MEAN PLATELET VOLUME 9.2 FL (7.4-10.4); MONOCYTES # (AUTO) 0.7 X 10^3 (0.0-1.0); MONOCYTES % (AUTO) 8 % (0-12); NEUTROPHILS % (AUTO) 70 % (42-75); PLATELET COUNT 239 10^3/uL (130-400); RED BLOOD COUNT 4.54 10^6/uL (4.35-5.85); RED CELL DISTRIBUTION WIDTH 13.1 % (10.0-14.5); WHITE BLOOD COUNT 8.5 10^3/uL (4.3-11.0)
[2017-09-08 13:22] LABS: INR 0.9 (0.8-1.4); PROTHROMBIN TIME PATIENT 12.6 SEC (12.2-14.7)
[2017-09-08 13:30] LABS: ALANINE AMINOTRANSFERASE 13 U/L (0-55); ALKALINE PHOSPHATASE 64 U/L (40-136); BILIRUBIN,TOTAL 0.4 MG/DL (0.1-1.0); BUN/CREATININE RATIO 16; CALCIUM 9.4 MG/DL (8.5-10.1); CARBON DIOXIDE 24 MMOL/L (21-32); CHLORIDE 103 MMOL/L (98-107); CREATININE SERUM 1.11 MG/DL (0.60-1.30); GFR ESTIMATED > 60; GLUCOSE 248 MG/DL (70-105); MAGNESIUM 1.6 MG/DL (1.8-2.4); SODIUM 136 MMOL/L (135-145); TOTAL PROTEIN 7.2 GM/DL (6.4-8.2)
--- NOTE | 2017-09-08 13:35 | Diagnostic Imaging Report ---
INDICATION: Chest pain. Time of exam: 1:18 PM Correlation is made with prior study from 10/04/2016. FINDINGS: The heart size is normal. The lungs are clear. No pleural effusion or pneumothorax is identified. The pulmonary vascularity is normal. IMPRESSION: No acute abnormality detected. Dictated by: Dictated on workstation # [id number]
--- NOTE | 2017-09-08 14:23 | Consultation-Cardiology ---
HPI-Cardiology Cardiology Consultation: Date of Consultation 09/08/17 Date of Admission Attending Physician Admitting Physician Latosha Lundberg MD Consulting Physician Teo SARMIENTO MD HPI: Time Seen by Provider: 15:30 Chief Complaint: Chest pain, dizziness This is a 52-year-old gentleman who is a patient of Dr. Latosha Lundberg. He has history of diabetes, hypertension, hyperlipidemia, CAD with previous PCI. Non- STEMI almost a year ago treated with balloon angioplasty of the left circumflex system. According to the patient he took Plavix for 4 months. He continue to follow with Dr. Lundberg. He presents with complain off dizziness. He had 3 episodes today but denies near syncope or syncope. He also complained of chest discomfort. Mild intensity. 08/19. No radiation. No exacerbating or relieving factors. Review of Systems-Cardiology Review of Systems Constitutional: No As described under HPI, No no symptoms reported, No chills, No fever, lightheadedness, No malaise, No tiredness, No weight loss, No weight gain, No other Eyes: No As described under HPI, No no symptoms reported, No blindness, No blurred vision, No contact lenses, No drainage, No decreased acuity, No foreign body sensation, No glasses, No inflammation, No pain, No photophobia, No previous injury, No shadows, No tunnel vision, No other, No vision change Ears/Nose/Throat: No As described under HPI, No no symptoms reported, No chronic hearing loss, No epistaxis, No ear discharge, No ear pain, No loose teeth, No mouth pain, No mouth swelling, No nasal drainage, No nose pain, No recent hearing loss, No throat pain, No throat swelling, No ulcerations, No other Respiratory: No no symptoms reported, No As described under HPI, No cough, No orthopnea, No shortness of breath, No SOB with excertion, No SOB at rest, No stridor, No wheezing, No other Cardiovascular: chest pain Gastrointestinal: No no symptoms reported, No As described under HPI, No abdomen distended, No abdominal pain, No blood streaked bowels, No constipation , No diarrhea, No difficulty swallowing, No nausea, No poor appetite, No poor fluid intake, No rectal bleeding, No vomiting, No other, No nausea/vomiting/ diarrhea, No stool coloration changes Genitourinary: No no symptoms reported, No As described under HPI, No burning, No dysuria, No discharge, No frequency, No flank pain, No hematuria, No incontinence, No pain, No urgency, No other, No urine frequency changes, No urine coloration changes Musculoskeletal: No no symptoms reported, No As describe under HPI, No back pain, No gout, No joint pain, No joint swelling, No muscle pain, No muscle stiffness, No neck pain, No other Skin: No no symptoms reported, No As described under HPI, No change in color, No change in hair/nails, No dryness, No lesions, No lumps, No rash, No other, No skin related problems, No ulcerations, No rash on exposed areas, No ulcerations on exposed areas Psychiatric/Neurological: As described under HPI [id number] Hx Patient Social History Alcohol Use: Denies Use Recreational Drug Use: No Smoking Status: Never a Smoker 2nd Hand Smoke Exposure: No Recent Foreign Travel: No Recent Infectious Disease Expo: No Hospitalization with Isolation: Denies Immunizations Up To Date Tetanus Booster (TDap): More than 5yrs Past Medical History PMH As described under Assessment. Family Medical History Family History: Diabetes mellitus 19 FATHER 19 MOTHER G8 BROTHER Hypercholesterolemia G8 BROTHER Hypertension 19 FATHER 19 MOTHER G8 BROTHER Allergies and Home Medications Allergies Coded Allergies: lisinopril (Verified Allergy, Intermediate, COUGH, 09/08/17) Home Medications Amlodipine Besylate 10 Mg Tablet, 10 MG PO DAILY, (Reported) Aspirin 81 Mg Tablet.dr, 81 MG PO DAILY, (Reported) Carvedilol 25 Mg Tab, 25 MG PO DAILY, (Reported) Carvedilol 25 Mg Tab, 12.5 MG PO HS, (Reported) TAKES 1/2 (25MG) TABLET Loratadine 10 Mg Tablet, 10 MG PO DAILY PRN for ALLERGIES, (Reported) Lovastatin 20 Mg Tablet, 40 MG PO HS, (Reported) TAKES 2 (20MG) TABLETS Metformin HCl 1,000 Mg Tablet, 1,000 MG PO BID, (Reported) Metformin HCl 1,000 Mg Tablet, 500 MG PO 1700, (Reported) TAKES 1/2 (1000MG) TABLET Multivitamin 1 Each Tablet, 1 TAB PO DAILY, (Reported) Sitagliptin Phosphate 50 Mg Tablet, 50 MG PO DAILY, (Reported) Physical Exam-Cardiology Physical Exam Vital Signs/I&O Vital Sign - Last 12Hours 09/08/17 09/08/17 09/08/17 09/08/17 12:41 12:41 12:45 15:45 Pulse 89 82 Resp 20 16 B/P (MAP) 152/92 (112) Pulse Ox 94 94 96 O2 Delivery Room Air Room Air Room Air Room Air 09/08/17 09/08/17 09/08/17 09/08/17 16:00 16:13 16:28 16:42 Temp 98.0 Pulse 85 82 81 82 Resp 18 B/P (MAP) 154/83 (106) 147/79 (101) 136/78 (97) Pulse Ox 97 97 95 O2 Delivery Room Air Room Air Room Air 09/08/17 09/08/17 16:43 17:42 Pulse 81 83 B/P (MAP) 145/77 (99) 146/79 (101) Pulse Ox 97 97 O2 Delivery Room Air Room Air Capillary Refill : NONE Constitutional: No appears stated age, No AAO x 3, No apparent distress, No PERRL, No well-developed, No well-nourished, No other HEENT: No PERRL, No normal ENT inspection, No TMs normal, No pharynx normal, No scleral icterus (R), No scleral icterus (L), No pale conjunctivae (R), No pale conjunctivae (L), No photophobia, No TM abnormal (R), No TM abnormal (L), No pharyngeal erythema, No tonsillar exudate, No other, No discharge, No EOMI, No hearing is well preserved, No hard of hearing, No oral hygience is good, No ulceration, No xanthelasmas are seen Neck: No non-tender, No full range of motion, No supple, No normal inspection, No carotid bruit, No limited range of motion, No lymphadenopathy (R), No lymphadenopathy (L), No tender lateral, No tender midline, No thyromegaly, No other, No carotid pulses are 2 + bilaterally, No with good upstrokes Respiratory: No accessory muscle use, No respiratory distress, No chest tender , No chest expansion is symmetric, No chest is bilaterally symmetric, lungs clear to percussion, lungs clear to auscultation, No crackles, No rhonchi, No rales, No stridor, No wheezing, No pleural rub, No other Cardiovascular: regular rate-rhythm, No irregularly irregular, No extra beats, No parasternal heave is noted, No JVD, No edema, No bradycardia, No tachycardia , No point of maximal impulse, No cardiac thrills are palpable, S1 and S2, No gallop/S3, No gallop/S4, No diastolic murmur, No systolic murmur, No friction rub, No click, No other Gastrointestinal: No tender, No soft, No round, No distended, No pulsatile mass , No organomegaly, No guarding, No rebound, No tenderness, No hernia, No mass, No audible bowel sounds, No abnormal bowel sounds, No abdominal bruits, No spleenomegaly, No other Rectal: deferred Extremities: No normal range of motion, No non-tender, No normal inspection, No pedal edema, No calf tenderness, No normal capillary refill, No pelvis stable , No calf tenderness, No inflammation, No pedal edema, No slow capillary refill , No swelling, No other, No abrasion, No clubbing, No cyanosis, No ecchymosis, No laceration, No no lower extremity edema bilateral, No significant edema, No tenderness, No wound Neurologic/Psychiatric: No graphic artist II-XII nml as tested, No no motor/sensory deficits, No alert, No normal mood/affect, No oriented x 3, No abnormal cerebellar tests, No abnormal graphic artist II-XII, No abnormal gait, No aphasia, No EOM palsy, No facial droop, No motor weakness, No sensory deficit, No depressed affect, No disoriented x 3, No other, No grossly intact, No power is 5/5 both on sides Skin: No normal color, No warm/dry, No cyanosis, No cool, No diaphoresis, No damp, No ecchymosis, No jaundice, No mottled, No pallor, No rash, No tattoos/ piercings, No ulcerations, No rash on exposed areas, No ulcerations on exposed areas, No other Data Review Labs Laboratory Tests 09/08/17 13:06: White Blood Count 8.5, Red Blood Count 4.54, Hemoglobin 12.9L, Hematocrit 37L, Mean Corpuscular Volume 82, Mean Corpuscular Hemoglobin 28, Mean Corpuscular Hemoglobin Concent 35, Red Cell Distribution Width 13.1, Platelet Count 239, Mean Platelet Volume 9.2, Neutrophils (%) (Auto) 70, Lymphocytes (%) (Auto) 18, Monocytes (%) (Auto) 8, Eosinophils (%) (Auto) 3, Basophils (%) (Auto) 1, Neutrophils # (Auto) 6.0, Lymphocytes # (Auto) 1.5, Monocytes # (Auto) 0.7, Eosinophils # (Auto) 0.3, Basophils # (Auto) 0.1, Prothrombin Time 12.6, INR Comment 0.9, Activated Partial Thromboplast Time 30, Sodium Level 136, Potassium Level 5.0, Chloride Level 103, Carbon Dioxide Level 24, Anion Gap 9, Blood Urea Nitrogen 18, Creatinine 1.11, Estimat Glomerular Filtration Rate > 60 , BUN/Creatinine Ratio 16, Glucose Level 248H, Calcium Level 9.4, Magnesium Level 1.6L, Total Bilirubin 0.4, Aspartate Amino Transf (AST/SGOT) 10, Alanine Aminotransferase (ALT/SGPT) 13, Alkaline Phosphatase 64, Myoglobin 49.0, Troponin I < 0.30, Total Protein 7.2, Albumin 4.0 Microbiology 09/08/17 Influenza Types A,B Antigen (ANTON) - Final, Complete ECG Impression ECG Initial ECG Rhythm: Normal Sinus Initial ECG Impression: Nonspecific Changes A/P-Cardiology Assessment/Admission Diagnosis Chest pain, Dizziness, History of CAD, PCI, Diabetes, Hypertension, Hyperlipidemia. Plan Although the chest pain seems to be atypical, due to his significant history of CAD, observation with serial troponins will be done. Initial EKG is negative. Unclear etiology of dizziness. We will continue telemetry. Request an echocardiogram. Patient may require a Holter or event monitor as an outpatient. History of CAD: Continue aspirin, statin, beta cristiano, MANUEL inhibitor. Diabetes: On metformin. Defer to primary team. Hypertension: Continue beta cristiano and MANUEL inhibitor. Optimize medical therapy. Hyperlipidemia: Continue atorvastatin. Thank you for your consultation. Please call me if you have any questions. Alberto Sarmiento MD, FACP, FACC, FSCAI, FHRS, CCDS Interventional Cardiology Cardiac Electrophysiology Vascular Medicine and Endovascular Interventions Clinical Quality Measures AMI/AHF: ASA po Prior to arrival: Teo Sadler MD Sep 08, 2017 2:23 pm
[2017-09-08] MEDS ORDERED: CRV25T PO ×2 (16:24)
[2017-09-08] MEDS ORDERED: METF1000 PO ×2 (16:24)
[2017-09-08] MEDS ORDERED: LOVA20TA2 PO (16:24)
[2017-09-08] MEDS ORDERED: MULT-35 PO (16:28)
[2017-09-08] MEDS ORDERED: LORA10TA7 PO (16:28)
[2017-09-08] MEDS ORDERED: AMLO10TA2 PO (16:28)
[2017-09-08] MEDS ORDERED: ASPI-983 PO (16:28)
[2017-09-08] MEDS ORDERED: SITA50TA PO (16:28)
[2017-09-08] MEDS ORDERED: ACETAMINOPHEN 500 MG TAB (TYLENOL) PO PRN (16:45)
[2017-09-08] MEDS ORDERED: morphine INJ 4 MG/ML 1 ML (VIAL/SYRINGE) IV PRN (16:45)
[2017-09-08] MEDS ORDERED: ONDANSETRON 4 MG/2 ML (SDV) Z0FRAN IV PRN (16:45)
[2017-09-08] MEDS ORDERED: INFLUENZA TRIvalent 2017-2018 0.5 ML/45 MCG SYR IM ONE (17:15)
[2017-09-08] MEDS: lisINopril 5 MG (PRINIVIL) TABLET PO SCH (17:48)
[2017-09-08] MEDS: meTOprolol TARTRATE 25 MG (LOPRESSOR) TABLET PO SCH (20:35)
[2017-09-08] MEDS ORDERED: ATORVASTATIN 40 MG (LIPITOR) TABLET PO SCH (21:00)
[2017-09-09 00:31] VITALS: BP 134/72
[2017-09-09 03:57] VITALS: BP 112/73
[2017-09-09 06:35] LABS: BASOPHILS % (AUTO) 0 % (0-10); EOSINOPHILS # (AUTO) 0.3 10^3/uL (0.0-0.3); EOSINOPHILS % (AUTO) 4 % (0-10); HEMATOCRIT 35 % (40-54); HEMOGLOBIN 12.2 G/DL (13.3-17.7); LYMPHOCYTES # (AUTO) 2.1 X 10^3 (1.0-4.0); LYMPHOCYTES % (AUTO) 27 % (12-44); MEAN CORPUSCULAR HEMOGLOBIN 29 PG (25-34); MEAN CORPUSCULAR HGB CONC 35 G/DL (32-36); MEAN CORPUSCULAR VOLUME 83 FL (80-99); MEAN PLATELET VOLUME 9.2 FL (7.4-10.4); MONOCYTES # (AUTO) 0.7 X 10^3 (0.0-1.0); MONOCYTES % (AUTO) 9 % (0-12); NEUTROPHILS # (AUTO) 4.5 X 10^3 (1.8-7.8); NEUTROPHILS % (AUTO) 59 % (42-75); PLATELET COUNT 230 10^3/uL (130-400); RED BLOOD COUNT 4.25 10^6/uL (4.35-5.85); RED CELL DISTRIBUTION WIDTH 13.3 % (10.0-14.5); WHITE BLOOD COUNT 7.6 10^3/uL (4.3-11.0)
[2017-09-09 07:01] LABS: BUN/CREATININE RATIO 17; CARBON DIOXIDE 26 MMOL/L (21-32); CHLORIDE 104 MMOL/L (98-107); CREATININE SERUM 0.86 MG/DL (0.60-1.30); GFR ESTIMATED > 60; GLUCOSE 172 MG/DL (70-105); POTASSIUM 4.2 MMOL/L (3.6-5.0); SODIUM 139 MMOL/L (135-145)
[2017-09-09 07:03] LABS: CHOLESTEROL 142 MG/DL (< 200); HDL CHOLESTEROL 35 MG/DL (40-60); TRIGLYCERIDES 119 MG/DL (<150); VLDL CHOLESTEROL 24 MG/DL (5-40)
[2017-09-09 08:00] VITALS: BP 146/83
[2017-09-09] MEDS ORDERED: ASPIRIN E.C. 325 MG (ECOTRIN) TABLET PO SCH (09:00)
[2017-09-09] MEDS: lisINopril 5 MG (PRINIVIL) TABLET PO SCH (09:30)
[2017-09-09] MEDS: meTOprolol TARTRATE 25 MG (LOPRESSOR) TABLET PO SCH (09:30)
--- NOTE | 2017-09-09 09:54 | Cardiology Progress Note ---
Cardiology SOAP Progress Note Subjective: No dizziness or chest pain. Objective: I&O/Vital Signs Vital Sign - Last 12Hours 09/09/17 09/09/17 09/09/17 09/09/17 00:31 01:00 03:57 07:00 Temp 97.5 97.8 Pulse 73 65 65 63 Resp 18 16 B/P (MAP) 134/72 (92) 112/73 (86) Pulse Ox 97 97 O2 Delivery Room Air Room Air 09/09/17 08:00 Temp 97.7 Pulse 61 Resp 18 B/P (MAP) 146/83 (104) Pulse Ox 97 O2 Delivery Room Air Intake and Output 09/09/17 00:00 Intake Total 275 ml Output Total 525 ml Balance -250 ml Weight (Pounds): 205 Weight (Ounces): 8.0 Weight (Calculated Kilograms): 92.050244 Constitutional: No appears stated age, No AAO x 3, No apparent distress, No PERRL, No well-developed, No well-nourished, No other Respiratory: No accessory muscle use, No respiratory distress, No chest tender , No chest expansion is symmetric, No chest is bilaterally symmetric, lungs clear to percussion, lungs clear to auscultation, No crackles, No rhonchi, No rales, No stridor, No wheezing, No pleural rub, No other Cardiovascular: regular rate-rhythm, No irregularly irregular, No extra beats, No parasternal heave is noted, No JVD, No edema, No bradycardia, No tachycardia , No point of maximal impulse, No cardiac thrills are palpable, S1 and S2, No gallop/S3, No gallop/S4, No diastolic murmur, No systolic murmur, No friction rub, No click, No other Gastrointestional: No tender, No soft, No round, No distended, No pulsatile mass, No organomegaly, No guarding, No rebound, No tenderness, No hernia, No mass, No audible bowel sounds, No abnormal bowel sounds, No abdominal bruits, No spleenomegaly, No other Extremities: No normal range of motion, No non-tender, No normal inspection, No pedal edema, No calf tenderness, No normal capillary refill, No pelvis stable , No calf tenderness, No inflammation, No pedal edema, No slow capillary refill , No swelling, No other, No abrasion, No clubbing, No cyanosis, No ecchymosis, No laceration, No no lower extremity edema bilateral, No significant edema, No tenderness, No wound Neurologic/Psychiatric: No debrander II-XII nml as tested, No no motor/sensory deficits, No alert, No normal mood/affect, No oriented x 3, No abnormal cerebellar tests, No abnormal debrander II-XII, No abnormal gait, No aphasia, No EOM palsy, No facial droop, No motor weakness, No sensory deficit, No depressed affect, No disoriented x 3, No other, No grossly intact, No power is 5/5 both on sides Skin: No normal color, No warm/dry, No cyanosis, No cool, No diaphoresis, No damp, No ecchymosis, No jaundice, No mottled, No pallor, No rash, No tattoos/ piercings, No ulcerations, No rash on exposed areas, No ulcerations on exposed areas, No other Results/Procedures: Labs Laboratory Tests 09/08/17 13:06: White Blood Count 8.5, Red Blood Count 4.54, Hemoglobin 12.9L, Hematocrit 37L, Mean Corpuscular Volume 82, Mean Corpuscular Hemoglobin 28, Mean Corpuscular Hemoglobin Concent 35, Red Cell Distribution Width 13.1, Platelet Count 239, Mean Platelet Volume 9.2, Neutrophils (%) (Auto) 70, Lymphocytes (%) (Auto) 18, Monocytes (%) (Auto) 8, Eosinophils (%) (Auto) 3, Basophils (%) (Auto) 1, Neutrophils # (Auto) 6.0, Lymphocytes # (Auto) 1.5, Monocytes # (Auto) 0.7, Eosinophils # (Auto) 0.3, Basophils # (Auto) 0.1, Prothrombin Time 12.6, INR Comment 0.9, Activated Partial Thromboplast Time 30, Sodium Level 136, Potassium Level 5.0, Chloride Level 103, Carbon Dioxide Level 24, Anion Gap 9, Blood Urea Nitrogen 18, Creatinine 1.11, Estimat Glomerular Filtration Rate > 60 , BUN/Creatinine Ratio 16, Glucose Level 248H, Calcium Level 9.4, Magnesium Level 1.6L, Total Bilirubin 0.4, Aspartate Amino Transf (AST/SGOT) 10, Alanine Aminotransferase (ALT/SGPT) 13, Alkaline Phosphatase 64, Myoglobin 49.0, Troponin I < 0.30, Total Protein 7.2, Albumin 4.0 09/08/17 18:14: Troponin I < 0.30 09/09/17 00:35: Troponin I < 0.30 09/09/17 06:20: White Blood Count 7.6, Red Blood Count 4.25L, Hemoglobin 12.2L, Hematocrit 35L, Mean Corpuscular Volume 83, Mean Corpuscular Hemoglobin 29, Mean Corpuscular Hemoglobin Concent 35, Red Cell Distribution Width 13.3, Platelet Count 230, Mean Platelet Volume 9.2, Neutrophils (%) (Auto) 59, Lymphocytes (%) (Auto) 27, Monocytes (%) (Auto) 9, Eosinophils (%) (Auto) 4, Basophils (%) (Auto) 0, Neutrophils # (Auto) 4.5, Lymphocytes # (Auto) 2.1, Monocytes # (Auto) 0.7, Eosinophils # (Auto) 0.3, Basophils # (Auto) 0.0, Sodium Level 139, Potassium Level 4.2, Chloride Level 104, Carbon Dioxide Level 26, Anion Gap 9, Blood Urea Nitrogen 15, Creatinine 0.86, Estimat Glomerular Filtration Rate > 60, BUN/ Creatinine Ratio 17, Glucose Level 172H, Calcium Level 9.0 09/09/17 06:30: Triglycerides Level 119, Cholesterol Level 142, LDL Cholesterol Direct 86, VLDL Cholesterol 24, HDL Cholesterol 35L Microbiology 09/08/17 Influenza Types A,B Antigen (ANTON) - Final, Complete A/P: Assessment/Dx: Chest pain, Dizziness, History of CAD, PCI, Diabetes, Hypertension, Hyperlipidemia. Plan: Although the chest pain seems to be atypical, due to his significant history of CAD, observation with serial troponins was done. Acute coronary syndrome has been ruled out with serial negative troponins and EKG. I do not think that we need to perform a pharmacological nuclear stress test. However, I will continue to follow clinically and if the patient has recurrent chest discomfort we will consider further evaluation. Unclear etiology of dizziness. No further episodes of dizziness. Telemetry shows sinus rhythm with no bradycardia or heart block. Echocardiogram also shows normal LV and RV function. We'll request a Holter monitor for 48 hours on discharge. History of CAD: Continue aspirin, statin, beta cristiano, MANUEL inhibitor. Diabetes: On metformin. Defer to primary team. Hypertension: Continue beta cristiano and MANUEL inhibitor. Optimize medical therapy. Hyperlipidemia: Continue atorvastatin. Follow-up with Dr. Sarmiento as an outpatient in one to 2 weeks. Thank you for your consultation. Please call me if you have any questions. Alberto Sarmiento MD, FACP, FACC, FSCAI, FHRS, CCDS Interventional Cardiology Cardiac Electrophysiology Vascular Medicine and Endovascular Interventions Clinical Quality Measures AMI/AHF: ASA po Prior to arrival: Teo Sadler MD Sep 09, 2017 9:54 am
--- NOTE | 2017-09-09 10:25 | Short Stay Summary-Hospitalist ---
HPI History of Present Illness: HPI/Chief Complaint CC: Chest pain HPI: This is a 52 [address] pt [address] Villatoro who experienced chest pain yesterday. Pt Interview: Pt confirms Dr. Sarmiento okaying him for DC Pt confirms Dr. Villatoro as PCP Pt states his meds have already been refilled and joked that he had them refilled before this happened Pt states along with his chest pain, he had some dizziness. Pt believes the dizziness caused his chest pain. Physical exam stable. Lungs sound perfect Pt denies other concerns Source: patient Exam Limitations: no limitations Date Seen 09/09/17 Time Seen by Provider: 09:30 Attending Physician Diego Armenta MD PCP Latosha Villatoro MD Referring Physician Date of Admission Sep 08, 2017 at 14:10 Home Medications & Allergies Home Medications Reviewed patient Home Medication Reconciliation Form Allergies Allergies Coded Allergies lisinopril (Verified Allergy, Intermediate, COUGH, 09/08/17) Past [id number] Hx Patient Social History Marrital Status: single Employed/Student: employed Alcohol Use: Denies Use Recreational Drug Use: No Smoking Status: Never a Smoker 2nd Hand Smoke Exposure: No Physical Abuse Screen: No Sexual Abuse: No Recent Foreign Travel: No Contact w/other who traveled: No Recent Hopitalizations: No Recent Infectious Disease Expo: No Immunizations Up To Date Tetanus Booster (TDap): More than 5yrs Seasonal Allergies Seasonal Allergies: Yes Surgeries Yes (hernia repair 2008) Appendectomy, Coronary Stent Respiratory No Currently Using CPAP: No Currently Using BIPAP: No Cardiovascular Yes (2 STENTS, 2 balloons) Coronary Artery Disease, High Cholesterol, Hypertension Neurological No Genitourinary No Gastrointestinal No Musculoskeletal No Endocrine History of Endocrine Disorders: Yes Endocrine Disorders: Diabetes, Non-Insulin dep Are Your Blood Sugars Over 250: No HEENT History of HEENT Disorders: No Cancer No Psychosocial History of Psychiatric Problem: No Integumentary History of Skin or Integumenta: No Blood Transfusions History of Blood Disorders: No Family Medical History Family Hx: Cardiovascular disease 19 FATHER 19 MOTHER Completed stroke 19 FATHER 19 MOTHER Diabetes mellitus 19 FATHER 19 MOTHER G8 BROTHER Hypercholesterolemia G8 BROTHER Hypertension 19 FATHER 19 MOTHER G8 BROTHER Neoplasm 19 FATHER Review of Systems Constitutional: see HPI, dizziness EENTM: no symptoms reported Respiratory: no symptoms reported Cardiovascular: chest pain Gastrointestinal: no symptoms reported Genitourinary: no symptoms reported Musculoskeletal: no symptoms reported Skin: no symptoms reported Psychiatric/Neurological: No Symptoms Reported All Other Systems Reviewed Negative Unless Noted: Yes Physical Exam Physical Exam Vital Signs Vital Sign - Last 12Hours 09/08/17 09/08/17 12:41 16:00 Temp 98.0 Pulse 89 Resp 20 B/P (MAP) 152/92 (112) Pulse Ox 94 O2 Delivery Room Air Capillary Refill : NONE General Appearance: No Apparent Distress, WD/WN, Chronically ill, Obese Eyes: Bilateral Eye Normal Inspection, Bilateral Eye PERRL HEENT: PERRL/EOMI, Normal ENT Inspection, Pharynx Normal Neck: Full Range of Motion, Normal Inspection, Non Tender, Supple, Carotid Bruit Respiratory: Chest Non Tender, Lungs Clear, Normal Breath Sounds, No Accessory Muscle Use, No Respiratory Distress Cardiovascular: Regular Rate, Rhythm, No Edema, No Gallop, No JVD, No Murmur, Normal Peripheral Pulses Gastrointestinal: Normal Bowel Sounds, No Organomegaly, No Pulsatile Mass, Non Tender, Soft Back: Normal Inspection, No CVA Tenderness, No Vertebral Tenderness Extremity: Normal Capillary Refill, Normal Inspection, Normal Range of Motion, Non Tender, No Calf Tenderness, No Pedal Edema Neurologic/Psychiatric: Alert, Oriented x3, No Motor/Sensory Deficits, Normal Mood/Affect Skin: Normal Color, Warm/Dry Lymphatic: No Adenopathy Results Results/Procedures Lab Laboratory Tests 09/08/17 13:06 09/09/17 06:20 Short Stay Diagnosis Discharge Diagnosis-Short Stay Admission Diagnosis Assessment: Chest pain atypical type with negative troponin h/o Non-ST elevation [place] CAD CAD with previous stents placed 2 at [facility] in [place] 2010 and cath with PTCA 09/26 Diabetes mellitus Final Discharge Diagnosis Assessment: Chest pain atypical type with negative troponin so CP is not cardiac in origin h/o Non-ST elevation [place] CAD CAD with previous stents placed 2 at [facility] in [place] 2010 and cath with PTCA 09/26 Diabetes mellitus Conclusion Plan Plan: Follow up with Dr. Villatoro Follow up with Dr. Sarmiento No med changes Copy Copies To 1: LATOSHA VILLATORO MD Clinical Quality Measures AMI/AHF: ASA po Prior to arrival: No DVT/VTE Risk/Contraindication: Risk Factor Score Per Nursin RFS Level Per Nursing on Admit: 1=Low/No VTE PPX JUAQUIN RODRIGUEZ DO Sep 09, 2017 10:25
[2017-09-09 12:00] VITALS: BP 145/86
== END 2017-09-09 10:44 | disposition home or self-care (01) ==
LOC: EDUNIT# 12:34 → ER 12:36 → UNDOADMOB 14:10 → 4TH 14:10 → UNDODISOB 09-09 13:50
PROVIDERS: ADMIT Internal Medicine; ATTEND Internal Medicine
DX: R07.89 Other chest pain (principal); R42 Dizziness and giddiness; I25.10 Atherosclerotic heart disease of native coronary artery without angina pectoris; I10 Essential (primary) hypertension; E78.5 Hyperlipidemia, unspecified; E11.9 Type 2 diabetes mellitus without complications; I25.2 Old myocardial infarction; Z95.5 Presence of coronary angioplasty implant and graft; Z79.82 Long term (current) use of aspirin; Z79.84 Long term (current) use of oral hypoglycemic drugs; Z79.899 Other long term (current) drug therapy
CPT/HCPCS: 36415; 71045; 80048; 80053; 80061; 83735; 83874; 84484; 85025; 85610; 85730; 87804; 93005; 93041; 93306

== ENCOUNTER 2017-09-10 09:28 | Outpatient (RCR) | payer OTHER ==
[~2017-09-10 09:28] MED LIST changes: +AMLO10TA2 PO; +ASPI-983 PO; +CRV25T PO; +LORA10TA7 PO; -METF1000 PO; +METF10002 PO; -METF500T4 PO; +METF500T5 PO; +MULT-35 PO
== END 2017-12-09 | disposition home or self-care (01) ==
LOC: CARD 09:28
PROVIDERS: ATTEND Internal Medicine Interventional Cardiology
DX: R07.9 Chest pain, unspecified (principal)
CPT/HCPCS: 93225; 93226

== ENCOUNTER 2019-05-19 06:24 | Day surgery (SDC) | payer SELFPAY ==
[~2019-05-19] VITALS: Ht 177 cm; Wt 99.0 kg
[2019-05-19] VITALS (11 sets, daily range): BP systolic 123–152; BP diastolic 74–86
[~2019-05-19 06:24] MED LIST changes: -AMLO10TA2 PO; +AMLO10TA7 PO; -AMLO5TAB2 PO; +AMLO5TAB9 PO; +METF-397 PO; +METF-399 PO; -METF10002 PO; -METF500T5 PO
[2019-05-19] MEDS: NITROGLYCERIN 0.4 MG SL TABS BTL 25'S SL PRN ×2 (06:40→06:43)
--- NOTE | 2019-05-19 06:40 | ED Chest Pain ---
General Stated Complaint: CHEST DISCOMFORT Source: patient Exam Limitations: no limitations History of Present Illness Date Seen by Provider: May 19, 2019 Time Seen by Provider: 06:24 Initial Comments The patient presents to the ER by private conveyance with chief complaint of chest pressure and discomfort in the middle of his chest going up towards his es ophagus. This is been going on with lots of belching gas for the past 10 days. He's used antacids unsuccessfully. He says usually he will belching and gets better. He has a history of a couple stents and is known to Dr. Sarmiento. He has diabetes not on insulin as well as hypertension. He has not taken his morning meds today. He has not taken aspirin or nitroglycerin. No history of heart attack. No swelling in his hands or feet or weight gain. No shortness of breath cough fevers or chills. No nausea. He's had appendix out and a hernia repair but no cholecystectomy. No EGD recently. Hyperlipidemia, hypertension, diabetes, CAD, history of non-STEMI 2016. Balloon angioplasty of the left circumflex system. Patient of Dr. Villatoro. No longer on MANUEL inhibitor due to cough. On ARB. Allergies and Home Medications Allergies Coded Allergies: lisinopril (Verified Allergy, Intermediate, COUGH, 09/08/17) Home Medications Amlodipine Besylate 10 Mg Tablet, 10 MG PO DAILY, (Reported) Aspirin 81 Mg Tablet.dr, 81 MG PO DAILY, (Reported) Carvedilol 25 Mg Tab, 25 MG PO DAILY, (Reported) Carvedilol 25 Mg Tab, 12.5 MG PO HS, (Reported) TAKES 1/2 (25MG) TABLET Loratadine 10 Mg Tablet, 10 MG PO DAILY PRN for ALLERGIES, (Reported) Lovastatin 20 Mg Tablet, 40 MG PO HS, (Reported) TAKES 2 (20MG) TABLETS Metformin HCl 1,000 Mg Tablet, 1,000 MG PO BID, (Reported) Metformin HCl 1,000 Mg Tablet, 500 MG PO 1700, (Reported) TAKES 1/2 (1000MG) TABLET Multivitamin 1 Each Tablet, 1 TAB PO DAILY, (Reported) Sitagliptin Phosphate 50 Mg Tablet, 50 MG PO DAILY, (Reported) Patient Home Medication List Home Medication List Reviewed: Yes Review of Systems Review of Systems Constitutional: No chills, No diaphoresis EENTM: No Blurred Vision, No Double Vision Respiratory: Denies Cough, Denies Shortness of Air Cardiovascular: See HPI, Chest Pain; Denies Edema, Denies Irregular Heart Rate, Denies Lightheadedness Gastrointestinal: Denies Abdominal Pain, Denies Constipated, Denies Diarrhea, Denies Nausea Genitourinary: Denies Burning, Denies Discharge Musculoskeletal: No back pain, No joint pain Past Rivxdqs-Kynwfx-Vtzdnt Hx Patient Social History Alcohol Use: Denies Use Recreational Drug Use: No Smoking Status: Never a Smoker 2nd Hand Smoke Exposure: No Recent Foreign Travel: No Contact w/Someone Who Travel: No Recent Hopitalizations: No Immunizations Up To Date Tetanus Booster (TDap): More than 5yrs Seasonal Allergies Seasonal Allergies: Yes Past Medical History Surgeries: Yes (hernia repair 2008) Appendectomy, Coronary Stent Respiratory: No Currently Using CPAP: No Currently Using BIPAP: No Cardiac: Yes (2 STENTS, 2 balloons) Coronary Artery Disease, High Cholesterol, Hypertension Neurological: No Genitourinary: No Gastrointestinal: No Musculoskeletal: No Endocrine: Yes Diabetes, Non-Insulin dep HEENT: No Cancer: No Psychosocial: No Integumentary: No Blood Disorders: No Family Medical History Cardiovascular disease 19 FATHER 19 MOTHER Completed stroke 19 FATHER 19 MOTHER Diabetes mellitus 19 FATHER 19 MOTHER G8 BROTHER Hypercholesterolemia G8 BROTHER Hypertension 19 FATHER 19 MOTHER G8 BROTHER Neoplasm 19 FATHER Physical Exam Vital Signs Vital Signs - First Documented Capillary Refill : Height, Weight, BMI Height: 5'11.00" Weight: 205lbs. 8.0oz. [id number]; 29.5 BMI Method:Stated General Appearance: WD/WN, Mild Distress HEENT: PERRL/EOMI, Pharynx Normal, Moist Mucous Membranes Neck: Full Range of Motion, Normal Inspection Respiratory: Lungs Clear, Normal Breath Sounds, No Accessory Muscle Use, No Respiratory Distress Cardiovascular: Regular Rate, Rhythm, No Edema, Normal Peripheral Pulses Gastrointestinal: Normal Bowel Sounds, Non Tender, Soft Extremity: Normal Capillary Refill, Normal Inspection, No Pedal Edema Neurologic/Psychiatric: Alert, Oriented x3 Skin: Normal Color, Warm/Dry Progress/Results/Core Measures Results/Orders Lab Results Laboratory Tests Test 05/19/19 06:33 05/19/19 08:25 Range/Units White Blood Count 7.4 4.3-11.0 10^3/uL Red Blood Count 4.62 4.35-5.85 10^6/uL Hemoglobin 12.7 L 13.3-17.7 G/DL Hematocrit 38 L 40-54 % Mean Corpuscular Volume 83 80-99 FL Mean Corpuscular Hemoglobin 27 25-34 PG Mean Corpuscular Hemoglobin Concent 33 32-36 G/DL Red Cell Distribution Width 13.6 10.0-14.5 % Platelet Count 212 130-400 10^3/uL Mean Platelet Volume 8.9 7.4-10.4 FL Neutrophils (%) (Auto) 64 42-75 % Lymphocytes (%) (Auto) 18 12-44 % Monocytes (%) (Auto) 11 0-12 % Eosinophils (%) (Auto) 6 0-10 % Basophils (%) (Auto) 1 0-10 % Neutrophils # (Auto) 4.7 1.8-7.8 X 10^3 Lymphocytes # (Auto) 1.4 1.0-4.0 X 10^3 Monocytes # (Auto) 0.8 0.0-1.0 X 10^3 Eosinophils # (Auto) 0.4 H 0.0-0.3 10^3/uL Basophils # (Auto) 0.0 0.0-0.1 10^3/uL Prothrombin Time 13.0 12.2-14.7 SEC INR Comment 0.9 0.8-1.4 Activated Partial Thromboplast Time 34 24-35 SEC Sodium Level 139 135-145 MMOL/L Potassium Level 4.1 3.6-5.0 MMOL/L Chloride Level 105 98-107 MMOL/L Carbon Dioxide Level 26 21-32 MMOL/L Anion Gap 8 5-14 MMOL/L Blood Urea Nitrogen 11 7-18 MG/DL Creatinine 0.99 0.60-1.30 MG/DL Estimat Glomerular Filtration Rate > 60 BUN/Creatinine Ratio 11 Glucose Level 140 H 70-105 MG/DL Calcium Level 9.2 8.5-10.1 MG/DL Corrected Calcium 9.1 8.5-10.1 MG/DL Magnesium Level 1.6 1.6-2.4 MG/DL Total Bilirubin 0.4 0.1-1.0 MG/DL Aspartate Amino Transf (AST/SGOT) 12 5-34 U/L Alanine Aminotransferase (ALT/SGPT) 12 0-55 U/L Alkaline Phosphatase 58 40-136 U/L Myoglobin 36.7 10.0-92.0 NG/ML Troponin I < 0.028 < 0.028 <0.028 NG/ML Total Protein 7.2 6.4-8.2 GM/DL Albumin 4.1 3.2-4.5 GM/DL Lipase 37 8-78 U/L My Orders Orders - CATARINO,KENIA J Cbc With Automated Diff (05/19/19 06:33) Magnesium (05/19/19 06:33) Chest 1 View, Ap/Pa Only (05/19/19:33) Ekg Tracing (05/19/19 06:33) Cardiac Profile 1 (05/19/19:33) Comprehensive Metabolic Panel (05/19/19:33) Myoglobin Serum (05/19/19:33) Protime With Inr (05/19/19:33) Partial Thromboplastin Time (05/19/19 06:33) O2 (05/19/19 06:33) Monitor-Rhythm Ecg Trace Only (05/19/19 06:33) Lipid Panel (05/20/19 06:00) Ed Iv/Invasive Line Start (05/19/19 06:33) Lipase (05/19/19 06:33) Nitroglycerin 0.4 Mg Btl 25's (Nitrostat (05/19/19 06:45) Aspirin Chewable Tablet (Baby Aspirin Ch (05/19/19 06:45) Troponin I (05/19/19 08:30) Ekg Tracing (05/19/19 07:40) Midazolam Injection (Versed Injection) (05/19/19 08:48) Fentanyl Injection (Sublimaze Injection (05/19/19 08:49) Verapamil Injection (Calan Injection) (05/19/19 08:49) Heparin (Bolus Per Protocol) (Heparin (B (05/19/19 08:49) Nitro Drip 80672 Mcg/D5w (Nitroglycerin (05/19/19 08:49) Heparin (Delivery Crew Member) (Heparin (Delivery Crew Member)) (05/19/19 08:50) Lidocaine 1% Inj 20 Ml (Xylocaine 1% Inj (05/19/19 08:50) Medications Given in ED Current Medications Medications Dose Ordered Sig/Paddy Route Start Time Stop Time Status Last Admin Dose Admin Aspirin 324 mg ONCE ONCE PO 05/19/19 06:45 05/19/19 06:46 DC 05/19/19 06:39 324 MG Nitroglycerin 0.4 mg UD PRN SL 05/19/19 06:45 05/19/19 06:43 0.4 MG Vital Signs/I&O 05/19/19 05/19/19 05/19/19 06:24 06:24 06:25 Temp 36.5 Pulse 89 Resp 20 B/P (MAP) 165/103 (123) Pulse Ox 99 99 O2 Delivery Room Air Room Air Room Air Progress Progress Note #1: Time: 06:39 Progress Note Aspirin, nitroglycerin and a chest pain workup. Suspect GI/GB. Slightly suspicious presentation. Heart score with a negative troponin would be 3 points. Low risk. 0.91.7% 30-day MACE. Repeat troponin at 3 hours and if negative, discharge home with outpatient follow-up. Echocardiogram by Dr. Sarmiento 2018: Cavity size wall thickness normal with an EF 55-65% and grade 1 diastolic dy sfunction. Mild regurgitation and aortic valve. Progress Note #2: Time: 08:41 Progress Note Patient is comfortable with this chest discomfort. After Dr. Sarmiento the patient he remarks that this is the same pain he was feeling before gambling and last time and the balloon Angiocath inserted his discomfort for about 3 or 4 months completely. Cardiology has concerns that the patient follow up outpatient and it might be better to take him to have a heart catheter sooner rather than later. He is exploring the possibility of taking the patient today. Progress Note #3: Time: 09:00 Progress Note Catheter lab here to take the patient directly. Observed to Dr. Sarmiento Initial ECG Impression Date: May 19, 2019 Initial ECG Impression Time: 06:28 Initial ECG Rate: 80 Initial ECG Rhythm: Normal Sinus Initial ECG Intervals: Normal Initial ECG Impression: Normal Initial ECG Comparisson: Unchanged Comment Normal sinus rhythm without ST elevation or depression. EKG : EKG Time: 07:49 Rate: 73 Rhythm: Normal Sinus Intervals: Normal ECG Comparisson: Unchanged ECG Impression: Normal Comment No Acute ST elevation. Diagnostic Imaging Diagonstic Imaging: Xray Plain Films/CT/US/NM/MRI: chest (1v) Comments NAME: JOSH MALLOY MED REC#: [id number] PT STATUS: REG ER : 1965 PHYSICIAN: KENIA TORIBIO MD ADMIT DATE: 05/19/19/ER Draft Date of Exam:05/19/19 CHEST 1 VIEW, AP/PA ONLY INDICATION: Chest pain. Comparison is made with prior examination 09/08/2017. FINDINGS: There is cardiomegaly. Lungs are clear. There is no pleural effusion or pneumothorax. The mediastinum is unremarkable. IMPRESSION: No acute cardiopulmonary abnormality. Dictated on workstation # [id number] Dict: 05/19/19 0729 Trans: 05/19/19 0743 [facility] [id number] Interpreted by: ROSELINE LINDSEY MD Electronically signed by: Reviewed: Reviewed by Me Consults : Consulting Physician: Teo SARMIENTO MD Consults Notes Discussed the case lab EKG imaging with Dr. Sarmiento and he agrees with delta troponin and call him back with results. Departure Communication (Admissions) Time/Spoke to Admitting Phy: 08:30 Dr. Sarmiento would like to take the patient to Delivery Crew Member and then he'll decide where to go next. Impression Primary Impression: Chest pain Qualified Codes: R07.9 - Chest pain, unspecified Additional Impressions: Acute coronary syndrome Acute coronary syndrome without high troponin Disposition: ADMITTED INPATIENT Condition: Stable Admissions Decision to Admit Reason: Admit from ER (General) Decision to Admit/Date: May 19, 2019 Time/Decision to Admit Time: 08:30 Departure-Patient Inst. Referrals: MASSIEL VILLATORO MD (PCP/Family) Primary Care Physician KENIA TORIBIO May 19, 2019 06:40
[2019-05-19 06:41] LABS: BASOPHILS % (AUTO) 1 % (0-10); EOSINOPHILS # (AUTO) 0.4 10^3/uL (0.0-0.3); EOSINOPHILS % (AUTO) 6 % (0-10); HEMATOCRIT 38 % (40-54); HEMOGLOBIN 12.7 G/DL (13.3-17.7); LYMPHOCYTES # (AUTO) 1.4 X 10^3 (1.0-4.0); LYMPHOCYTES % (AUTO) 18 % (12-44); MEAN CORPUSCULAR HGB CONC 33 G/DL (32-36); MEAN CORPUSCULAR VOLUME 83 FL (80-99); MEAN PLATELET VOLUME 8.9 FL (7.4-10.4); MONOCYTES # (AUTO) 0.8 X 10^3 (0.0-1.0); MONOCYTES % (AUTO) 11 % (0-12); NEUTROPHILS # (AUTO) 4.7 X 10^3 (1.8-7.8); NEUTROPHILS % (AUTO) 64 % (42-75); PLATELET COUNT 212 10^3/uL (130-400); RED CELL DISTRIBUTION WIDTH 13.6 % (10.0-14.5); WHITE BLOOD COUNT 7.4 10^3/uL (4.3-11.0)
[2019-05-19 06:42] LABS: MEAN CORPUSCULAR HEMOGLOBIN 27 PG (25-34)
[2019-05-19] MEDS ORDERED: ASPIRIN 81 MG CHEW (CHILDREN'S ASA) PO ONE (06:45)
[2019-05-19 06:52] LABS: INR 0.9 (0.8-1.4)
[2019-05-19 07:02] LABS: ALANINE AMINOTRANSFERASE 12 U/L (0-55); ALBUMIN 4.1 GM/DL (3.2-4.5); ALKALINE PHOSPHATASE 58 U/L (40-136); BILIRUBIN,TOTAL 0.4 MG/DL (0.1-1.0); BUN/CREATININE RATIO 11; CALCIUM 9.2 MG/DL (8.5-10.1); CARBON DIOXIDE 26 MMOL/L (21-32); CHLORIDE 105 MMOL/L (98-107); CREATININE SERUM 0.99 MG/DL (0.60-1.30); GFR ESTIMATED > 60; GLUCOSE 140 MG/DL (70-105); LIPASE 37 U/L (8-78); MAGNESIUM 1.6 MG/DL (1.6-2.4); POTASSIUM 4.1 MMOL/L (3.6-5.0); SODIUM 139 MMOL/L (135-145); TOTAL PROTEIN 7.2 GM/DL (6.4-8.2)
--- NOTE | 2019-05-19 07:10 | NUR ---
REPORT GIVEN TO VISHAL GARRIDO
--- NOTE | 2019-05-19 07:43 | Diagnostic Imaging Report ---
INDICATION: Chest pain. Comparison is made with prior examination 09/08/2017. FINDINGS: There is cardiomegaly. Lungs are clear. There is no pleural effusion or pneumothorax. The mediastinum is unremarkable. IMPRESSION: No acute cardiopulmonary abnormality. Dictated by: Dictated on workstation # [id number]
[2019-05-19] MEDS ORDERED: MIDAZOLAM 5 MG/5 ML (VERSED) VIAL ONE (08:48)
[2019-05-19] MEDS ORDERED: HEParin 1000 UNIT/ML (10ML VIAL) FOR BOLUS ONE (08:49)
[2019-05-19] MEDS ORDERED: VERAPAMIL 5 MG/2 ML (CALAN) VIAL IV ONE (08:49)
[2019-05-19] MEDS ORDERED: fentaNYL INJECTION 100 MCG/2 ML AMP ONE (08:49)
[2019-05-19] MEDS ORDERED: NITRO DRIP 25000 MCG/D5W 250 ML IV ONE (08:49)
[2019-05-19] MEDS ORDERED: HEParin (CATH LAB) 2,000 ML IV ONE (08:50)
[2019-05-19] MEDS ORDERED: LIDOCAINE 1% INJ 20 ML 20 ML VIAL ONE (08:50)
[2019-05-19] MEDS ORDERED: NS IV 1000 ML 1,000 ML ONE (09:05)
[2019-05-19] MEDS: NS IV 1000 ML 1,000 ML IV SCH ×4 (09:30→21:01)
--- NOTE | 2019-05-19 09:36 | Consultation-Cardiology ---
HPI-Cardiology Cardiology Consultation: Date of Consultation 05/19/19 Date of Admission Attending Physician Teo Sarmiento MD Admitting Physician Latosha Lundberg MD Consulting Physician Teo SARMIENTO MD HPI: Time Seen by a Provider: 08:30 Chief Complaint: Chest pain This is a 53-year-old gentleman with previous history of diabetes, hypertension, hyperlipidemia, CAD. he is a non-smoker. He denies any significant family history. He presented in 09/2016 with NSTEMI and was taken to the catheter lab. Diffuse disease in the LAD. Moderate to severe disease in the RCA. FFR was 0.86 therefore PCI was deferred. Severe in-stent restenosis of 2 stents in the left circumflex artery system which were treated with balloon angioplasty alone with good results. According to the patient his chest pain resolved after balloon angioplasty. He does not have insurance according to the patient and therefore did not follow-up. I'm unclear about his compliance with medical th erapy. 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 No exacerbating or relieving factors. No associated cardiac symptoms. Moderate intensity. Quality is very similar to the chest pain he had with a non-STEMI in September 2016. Chest pain relieved with nitroglycerin. Review of Systems-Cardiology Review of Systems Constitutional: As described under HPI; No As described under HPI, No no symptoms reported, No chills, No fever, No lightheadedness Eyes: No As described under HPI, No no symptoms reported, No blindness, No blurred vision, No contact lenses, No drainage, No decreased acuity, No foreign body sensation, No pain, No vision change Ears/Nose/Throat: No As described under HPI, No no symptoms reported, No ch ronic hearing loss, No ear discharge, No ear pain, No nasal drainage, No ulcerations Respiratory: No no symptoms reported; As described under HPI; No As described under HPI, No cough, No orthopnea, No shortness of breath, No SOB with excertion Cardiovascular: No no symptoms reported; As described under HPI; No As described under HPI; chest pain; No edema, No irregular heart rate, No lightheadedness, No palpitations Gastrointestinal: No no symptoms reported, No As described under HPI, No abdomen distended, No abdominal pain, No blood streaked bowels, No constipation, No diarrhea, No nausea, No vomiting, No stool coloration changes Genitourinary: No As described under HPI, No burning, No dysuria, No discharge, No frequency, No flank pain, No hematuria, No urgency Skin: No rash, No skin related problems, No ulcerations Psychiatric/Neurological: No anxiety, No depression, No seizure, No focal weakness, No syncope Hematologic: No bleeding abnormalities LFN-Oinkun-Qnjyuk Hx Patient Social History Alcohol Use: Denies Use Recreational Drug Use: No Smoking Status: Never a Smoker 2nd Hand Smoke Exposure: No Recent Foreign Travel: No Recent Infectious Disease Expo: No Immunizations Up To Date Tetanus Booster (TDap): Unknown Past Medical History PMH As described under Assessment. Family Medical History Family History: Cardiovascular disease 19 FATHER 19 MOTHER Completed stroke 19 FATHER 19 MOTHER Diabetes mellitus 19 FATHER 19 MOTHER G8 BROTHER Hypercholesterolemia G8 BROTHER Hypertension 19 FATHER 19 MOTHER G8 BROTHER Neoplasm 19 FATHER Allergies and Home Medications Allergies Coded Allergies: lisinopril (Verified Allergy, Intermediate, COUGH, 09/08/17) Home Medications Amlodipine Besylate 10 Mg Tablet, 10 MG PO DAILY, (Reported) Aspirin 81 Mg Tablet.dr, 81 MG PO DAILY, (Reported) Carvedilol 25 Mg Tab, 25 MG PO DAILY, (Reported) Carvedilol 25 Mg Tab, 12.5 MG PO HS, (Reported) TAKES 1/2 (25MG) TABLET Loratadine 10 Mg Tablet, 10 MG PO DAILY PRN for ALLERGIES, (Reported) Lovastatin 20 Mg Tablet, 40 MG PO HS, (Reported) TAKES 2 (20MG) TABLETS Metformin HCl 1,000 Mg Tablet, 1,000 MG PO BID, (Reported) Metformin HCl 1,000 Mg Tablet, 500 MG PO 1700, (Reported) TAKES 1/2 (1000MG) TABLET Multivitamin 1 Each Tablet, 1 TAB PO DAILY, (Reported) Sitagliptin Phosphate 50 Mg Tablet, 50 MG PO DAILY, (Reported) Patient Home Medication List Home Medication List Reviewed: Yes Physical Exam-Cardiology Physical Exam Vital Signs/I&O 05/19/19 05/19/19 05/19/19 05/19/19 06:24 06:24 06:25 09:00 Temp 36.5 Pulse 89 75 Resp 20 13 B/P (MAP) 165/103 (123) 152/91 Pulse Ox 99 99 98 O2 Delivery Room Air Room Air Room Air Room Air Capillary Refill : Less Than 3 Seconds Constitutional: appears stated age, AAO x 3; No apparent distress; well-dev eloped, well-nourished HEENT: PERRL; No discharge; hearing is well preserved, oral hygience is good; No ulceration, No xanthelasmas are seen Neck: No carotid bruit; carotid pulses are 2 + bilaterally Respiratory: chest is bilaterally symmetric, lungs clear to auscultation Cardiovascular: regular rate-rhythm, S1 and S2 Gastrointestinal: soft, round, audible bowel sounds; No spleenomegaly Rectal: deferred Extremities: normal range of motion, non-tender, normal inspection; No clubbing , No cyanosis; no lower extremity edema bilateral; No significant edema Neurologic/Psychiatric: no motor/sensory deficits, alert, normal mood/affect, oriented x 3, power is 5/5 both on sides Skin: normal color, warm/dry; No rash, No ulcerations Data Review Labs Laboratory Tests 05/19/19 06:33: White Blood Count 7.4, Red Blood Count 4.62, Hemoglobin 12.7L, Hematocrit 38L, Mean Corpuscular Volume 83, Mean Corpuscular Hemoglobin 27, Mean Corpuscular Hemoglobin Concent 33, Red Cell Distribution Width 13.6, Platelet Count 212, Mean Platelet Volume 8.9, Neutrophils (%) (Auto) 64, Lymphocytes (%) (Auto) 18, Monocytes (%) (Auto) 11, Eosinophils (%) (Auto) 6, Basophils (%) (Auto) 1, Neutrophils # (Auto) 4.7, Lymphocytes # (Auto) 1.4, Monocytes # (Auto) 0.8, Eosinophils # (Auto) 0.4H, Basophils # (Auto) 0.0, Prothrombin Time 13.0, INR Comment 0.9, Activated Partial Thromboplast Time 34, Sodium Level 139, Potassium Level 4.1, Chloride Level 105, Carbon Dioxide Level 26, Anion Gap 8, Blood Urea Nitrogen 11, Creatinine 0.99, Estimat Glomerular Filtration Rate > 60, BUN/Creatinine Ratio 11, Glucose Level 140H, Calcium Level 9.2, Corrected Calcium 9.1, Magnesium Level 1.6, Total Bilirubin 0.4, Aspartate Amino Transf (AST/SGOT) 12, Alanine Aminotransferase (ALT/SGPT) 12, Alkaline Phosphatase 58, Myoglobin 36.7, Troponin I < 0.028, Total Protein 7.2, Albumin 4.1, Lipase 37 05/19/19 08:25: Troponin I < 0.028 ECG Impression ECG Initial ECG Rhythm: Normal Sinus Initial ECG Impression: Normal A/P-Cardiology Assessment/Admission Diagnosis Unstable angina, Diabetes, Hypertension, Hyperlipidemia, Plan High risk patient with prolonged episode of chest pain similar to his previous episode of non-STEMI in September 2016. Serial troponin negative. High risk acute coronary syndrome has been ruled out. EKG does not show any obvious ST-T wave abnormalities. I spoke at length with the patient and Dr. Ocasio in the ER and recommended that we go ahead with coronary angiography. Informed consent was taken. Hyperlipidemia: Will require high-dose statin therapy. He is on lovastatin 40 mg. Will likely change to Lipitor 80 mg. Hypertension: MANUEL inhibitor was previously discontinued due to cough. We will continue with angiotensin receptor cristiano and a beta cristiano. Diabetes: Same medication as outpatient. Thank you for your consultation. Please call me if you have any questions. Alberto Sarmiento MD, FACP, FACC, FSCAI, FHRS, CCDS Interventional Cardiology Cardiac Electrophysiology Vascular Medicine and Endovascular Interventions Clinical Quality Measures AMI/AHF: ASA po Prior to arrival: Teo Sdaler MD May 19, 2019 09:36
--- NOTE | 2019-05-19 09:39 | Cardiac Procedure Note-CS/ASA ---
Pre-Procedure Note Pre-Op Procedure Note H&P Reviewed The H&P was reviewed, patient examined and no changes noted. Date H&P Reviewed: May 19, 2019 Time H&P Reviewed: 09:39 Conscious Sedation Pre-Proced Time 09:39 ASA Score 3 For ASA 3 and 4: Consider anesthesia and medical clearance. Also, for patients with a history of failed moderate sedation consider anesthesia. Airway Lungs Heart ASA score ASA 1: a normal healthy patient ASA 2: a patient with a mild systemic disease (mid diabetes, controlled hypertension, obesity ASA 3: a patient with a severe systemic disease that limits activity (angina, COPD, prior Myocardial infarction) ASA 4: a patient with an incapacitating disease that is a constant threat to life (CHF, renal failure) ASA 5: a moribund patient not expected to survive 24 hrs. (ruptured aneurysm) ASA 6: a declared brain- patient whose organs are being harvested. For emergent operations, add the letter E after the classification Mallampati Classification Grade 1 Sedation Plan Analgesia, Amnesia, Plan communicated to team members, Discussed options with patient/fam, Discussed risks with patient/fam The patient is an appropriate candidate to undergo the planned procedure, sedation, and anesthesia. The patient immediately re-assessed prior to indication. Teo MAIN MD May 19, 2019 09:39
[2019-05-19] MEDS ORDERED: TICAGRELOR 90 MG TABLET (BRILINTA) PO ONE (09:56)
--- NOTE | 2019-05-19 10:56 | Coronary Angiography & PCI ---
Coronary Angiography & PCI DATE OF PROCEDURE: 05/19/19 INDICATION: Unstable angina. PREOPERATIVE DIAGNOSIS: Unstable angina. POSTOPERATIVE DIAGNOSIS: Severe in-stent restenosis of stent in the mid segment of an OM1 HISTORY: This is a 53-year-old gentleman who has history of CAD, previous PCI, non-STEMI in September 2016 with severe in-stent restenosis in left circumflex artery stent as well as OM1 artery stent treated successfully with balloon angioplasty. The patient also has history of diabetes, hypertension, hyperlipidemia. He presented to the ER with prolonged episode of chest pain. Serial troponin negative. EKG did not reveal any acute ST-T wave abnormalities. Therefore, the patient was scheduled for coronary angiography. PROCEDURES PERFORMED: 1.Coronary angiography. 2.Left heart catheterization. 3.PTCA to the in-stent restenosis of OM1 artery. COMPLICATIONS: None. SPECIMENS: None. ESTIMATED BLOOD LOSS: 10 mL ANESTHESIA: Conscious sedation ANTICOAGULATION: IV heparin CONTRAST: 160 mL. FLUOROSCOPY: 17.51 minutes. FLOUROSCOPY DOSE: 1533 mgy. PROCEDURE DETAILS: The patient is a 53 male and was brought to the laborer high density press after informed consent was taken. All the risks and complications were explained in detail; this included the risk of bleeding, vascular damage, stroke, [place] and even . The patient was draped and prepped in the usual sterile fashion. Access was gained in the right radial artery with a 6 Malay sheath. Coronary angiography and left heart catheterization was performed with the [place] catheter. FINDINGS: 1.Left main: Patent. 2.LAD: Severe diffuse disease in the mid and distal segment, not amenable to PCI. The vessel diameter is less than 1.5 mm. 3.Left circumflex artery: A stent in the mid left circumflex artery has mild in- stent restenosis. A stent in the first OM artery has severe in-stent restenosis of 99 percent. A small branch is occluded supplied by left to left collaterals, known to us from before. 4.RCA: Moderate mid RCA stenosis. Severe distal disease in the PDA and PL branch however these branches diameter of less than 1.5 mm and not suitable for PCI. 5.Left heart catheterization: LV pressure 118/6 mmHg. LVEDP 18 mmHg. Aortic pressure 120/71 mmHg. Normal LV function with no wall motion abnormalities. No gradient across the aortic valve. RECOMMENDATIONS: PTCA to the in-stent restenosis of the first OM artery stent is recommended. INTERVENTION DETAILS: We first started with an EBU 4.0 guide catheter but were not able to engage the left main. We switched to a JL4 guide catheter and were still not able to engage the left main. We then took an EBU 3.5 guide catheter and were able to engage the left main. We took a whisper extra-support guidewire and IV heparin for anticoagulation. Total 7000 international units of heparin were given. Brilinta 180 mg by mouth was given before the intervention. We crossed the lesion with the whisper wire and the tip of the wire was placed in the distal OM1 artery. We took a [employer] Quantum 2.5 x 12 mm noncompliant balloon and performed 4 inflations in the entire length of the stent. The first inflation was at the severe stenosis at 12 joel for 68 seconds. The next 3 inflations were in the mid and proximal segments of the stent at 14 joel for 31 seconds, 14 joel for 17 seconds, 14 joel for 14 seconds respectively. Excellent results with less than 10 percent rest or stenosis. ROSIO-3 flow. Patient did not have any complication and tolerated the procedure well. CONCLUSIONS: 1. Long-term dual antiplatelet therapy. High dose statin therapy. 2. Echocardiogram. Alberto Sarmiento MD, FACP, FACC, [facility] Interventional Cardiology Teo SARMIENTO MD May 19, 2019 10:56
[2019-05-19] MEDS ORDERED: PATIENT MAY USE OWN MEDS, ALL PO SCH (11:00)
[2019-05-19] MEDS: CLOPIDOGREL 75 MG (PLAVIX) TABLET PO SCH (12:00)
[2019-05-20] VITALS: BP 152/81
[2019-05-20 02:49] LABS: HEMOGLOBIN 11.9 G/DL (13.3-17.7); MEAN PLATELET VOLUME 9.5 FL (7.4-10.4); RED CELL DISTRIBUTION WIDTH 13.4 % (10.0-14.5)
[2019-05-20 03:11] LABS: BUN/CREATININE RATIO 15; CARBON DIOXIDE 24 MMOL/L (21-32); CHLORIDE 106 MMOL/L (98-107); CHOLESTEROL 139 MG/DL (< 200); CREATININE SERUM 0.88 MG/DL (0.60-1.30); GFR ESTIMATED > 60; GLUCOSE 166 MG/DL (70-105); HDL CHOLESTEROL 36 MG/DL (40-60); SODIUM 138 MMOL/L (135-145); TRIGLYCERIDES 147 MG/DL (<150); VLDL CHOLESTEROL 29 MG/DL (5-40)
[2019-05-20] MEDS: NS IV 1000 ML 1,000 ML IV SCH ×2 (03:54)
[2019-05-20 04:00] VITALS: BP 168/84
[2019-05-20 08:00] VITALS: BP 163/93
[2019-05-20] MEDS: CLOPIDOGREL 75 MG (PLAVIX) TABLET PO SCH (08:13)
[2019-05-20] MEDS ORDERED: ASPIRIN E.C. 81 MG (ECOTRIN) TAB PO SCH (09:00)
--- NOTE | 2019-05-20 10:03 | Cardiology Discharge Summary ---
Diagnosis/Chief Complaint Date of Admission 05/19/2019 Date of Discharge 05/20/2019 Admission Diagnosis Unstable angina Final/Discharge Diagnosis Unstable angina, severe in-stent restenosis in OM1. Chief Complaint/HPI Chief Complaint/HPI This is a 53-year-old gentleman with previous history of diabetes, hypertension, hyperlipidemia, CAD. he is a non-smoker. He denies any significant family history. He presented in 09/2016 with NSTEMI and was taken to the catheter lab. Diffuse disease in the LAD. Moderate to severe disease in the RCA. FFR was 0.86 therefore PCI was deferred. Severe in-stent restenosis of 2 stents in the left circumflex artery system which were treated with balloon angioplasty alone with good results. According to the patient his chest pain resolved after balloon angioplasty. He does not have insurance according to the patient and therefore did not follow-up. I'm unclear about his compliance with medical therapy. He presents program dir with complaints of similar chest pressure in the middle of the chest with radiation towards the neck. No exacerbating or relieving factors. No associated cardiac symptoms. Moderate intensity. Quality is very similar to the chest pain he had with a non-STEMI in September 2016. Chest pain relieved with nitroglycerin. Discharge Summary Procedures Severe in-stent restenosis of a stent in first OM artery treated successfully with PTCA. Discharge Physical Examination Normal cardiovascular examination. Palpable right radial pulse. Hospital Course Was the Problem List Reviewed?: Yes Unremarkable. Pending Labs Laboratory Tests 05/20/19 02:33: White Blood Count 7.0, Red Blood Count 4.32, Hemoglobin 11.9, Hematocrit 36, Mean Corpuscular Volume 83, Mean Corpuscular Hemoglobin 28, Mean Corpuscular Hemoglobin Concent 33, Red Cell Distribution Width 13.4, Platelet Count 202, Mean Platelet Volume 9.5, Sodium Level 138, Potassium Level 4.0, Chloride Level 106, Carbon Dioxide Level 24, Anion Gap 8, Blood Urea Nitrogen 13, Creatinine 0.88, Estimat Glomerular Filtration Rate > 60, BUN/Creatinine Ratio 15, Glucose Level 166, Calcium Level 9.0, Triglycerides Level 147, Cholesterol Level 139, LD L Cholesterol Direct 84, VLDL Cholesterol 29, HDL Cholesterol 36 Discussion & Recommendations Discussion Discharge took 30 minutes to complete. Discharge instructions were discussed at length with the patient. Compliance with medications was emphasized. Dual antiplatelet therapy for at least 1 year. Healthy living was emphasized. Follow up appt.: Dr. Sarmiento in 4 weeks. Dicharge Diet: Cardiac Diet Activity as Tolerated: Yes Home Medications Reviewed patient Home Medication Reconciliation performed by pharmacy medication reconciliations electronics technician apprentice and/or nursing. Patients Allergies have been reviewed. Discharge Home Medications: Reviewed and agree with Discharge Medication list on patient's Discharge Instruction sheet Condition at discharge Stable. Instructions to patient/family Discussed with the patient and family. Clinical Quality Measures AMI/AHF: ASA po Prior to arrival: No DVT/VTE Risk/Contraindication: Risk Factor Score Per Nursin RFS Level Per Nursing on Admit: 2=Moderate Teo SARMIENTO MD May 20, 2019 10:03
[2019-05-20] MEDS ORDERED: CLOP75TA28 PO (10:06)
[2019-05-20] MEDS ORDERED: ATOR80TA76 PO (10:06)
--- NOTE | 2019-05-20 10:07 | Discharge Inst-Post CATH ---
Discharge Inst-CATH/EP Problems Reviewed?: Yes Final Diagnosis Severe CAD Post Cardiac Cath/EP D/C Inst Follow Up/Plan Dr Sarmiento in four weeks. <b>CARDIAC CATH/EP PROCEDURE DISCHARGE INSTRUCTIONS</b> ACTIVITY * Go Home directly and rest. * Limit activity of the leg (or wrist if it was used) for 7 days including aerobics, swimming, jogging, bicycling, etc. * Restrict stair-climbing for 7 days if possible, if not, climb up with your non-cath leg, then bring together on the same step. * Avoid lifting, pushing, pulling or excessive movement of the affected extremity for 7 days. * Customary sexual activity may be resumed after 2 days-use caution not to use a position that strains or causes pain to the affected extremity. * No driving for 24 hours. * NO SMOKING. * Avoid straining for bowel movements for 7 days. * Gentle walking on level ground is allowed. * Returning to work will depend on the type of procedure and the results. Your doctor will discuss this with you. CALL YOUR DOCTOR FOR ANY OF THE FOLLOWING: *If bleeding from the puncture site occurs- Apply gentle pressure to site with clean cloth and call your doctor or EMS. * If a knot or lump forms under the skin, increases in size, or causes pain. * If bruising appears to be worsening or moving further down your leg instead of disappearing. * Temperature above 101 F. CARE OF YOUR GROIN INCISION; * Bruising or purple discoloration of the skin near the puncture site is common. * You may shower only, no bathtub bathing for 5 days. Be careful to avoid slipping as your leg may feel stiff. * If a closure device was used on your femoral artery, please see the attached guide regarding care of the device and your leg. * Leave dressing on FOR 24 hours. CARE OF YOUR WRIST INCISION; * Bruising or purple discoloration of the skin near the puncture site is common. * You may shower. * DO NOT submerge wrist. * Leave dressing on FOR 24 hours. Teo SARMIENTO MD May 20, 2019 10:07
[2019-05-20 11:28] VITALS: BP 163/93
== END 2019-05-20 11:25 | disposition home or self-care (01) ==
LOC: EDUNIT# 06:24 → ER 06:26 → CATH 08:57 → CSD 11:13 → CATH 05-20 11:25
PROVIDERS: ATTEND Internal Medicine Interventional Cardiology
DX: T82.855A Stenosis of coronary artery stent, initial encounter (principal); I25.110 Atherosclerotic heart disease of native coronary artery with unstable angina pectoris; I25.2 Old myocardial infarction; E11.9 Type 2 diabetes mellitus without complications; I10 Essential (primary) hypertension; E78.00 Pure hypercholesterolemia, unspecified; E78.5 Hyperlipidemia, unspecified; J30.9 Allergic rhinitis, unspecified; Z95.1 Presence of aortocoronary bypass graft; Z79.82 Long term (current) use of aspirin; Z79.84 Long term (current) use of oral hypoglycemic drugs; Z90.89 Acquired absence of other organs; Z88.8 Allergy status to other drugs, medicaments and biological substances; Z79.899 Other long term (current) drug therapy; Z82.49 Family history of ischemic heart disease and other diseases of the circulatory system; Z83.3 Family history of diabetes mellitus
CPT/HCPCS: 36415; 71045; 80048; 80053; 80061; 83690; 83735; 83874; 84484; 85025; 85027; 85347; 85610; 85730; 93005; 93041; 93306; 93458

== ENCOUNTER 2021-12-05 07:02 | Observation (INO) | payer OTHER ==
[2021-12-05] VITALS (15 sets, daily range): BP systolic 114–145; BP diastolic 62–80
[~2021-12-05] VITALS: Ht 180 cm; Wt 96.7 kg
[~2021-12-05 07:02] MED LIST changes: +AMLO-250 PO; +AMLO-251 PO; -AMLO10TA7 PO; -AMLO5TAB9 PO; +ASPI-1238 PO; -ASPI-983 PO; -LISI-556 PO; +LISI5TAB20 PO
[2021-12-05] MEDS ORDERED: ASPIRIN 81 MG CHEW (CHILDREN'S ASA) PO ONE (07:30)
--- NOTE | 2021-12-05 07:31 | ED Chest Pain ---
General Chief Complaint: Chest Pain Stated Complaint: SOB,CP Nursing Triage Note: l sided intermittent chest pain and soa with exertion x 2 days Source: patient Exam Limitations: no limitations History of Present Illness Date Seen by Provider: Dec 05, 2021 Time Seen by Provider: 07:12 Initial Comments Patient is a 56-year-old male with a history of coronary artery disease followed by Dr. Schmid who presents by private vehicle this morning with a chief complaint of chest discomfort. Patient states he has had intermittent left- sided chest discomfort and "soreness" over the last several days (2-3). His last heart cath was in 2019. He describes angioplasty and stents in the past. He is on baby aspirin daily as well as what sounds like clopidogrel. He states that he woke up this morning a little after 6 and had a "twinge" then he walked the dog and after walking the dog was standing in the kitchen and had onset of some discomfort. He was little short of breath at that time. No nausea or diaphoresis. He points to the low sternum/epigastrium as the source of pain as well as to the left chest. No radiation of pain. Currently, at the time of my evaluation he is not having any discomfort. He states he took his daily morning medications. He states he has been fighting "allergies" in recent days. No fever, productive cough. No nausea, vomiting or diarrhea. No problems with bladder function. He is diabetic. He smoked for a few weeks when he was 13. He is actually scheduled for a follow-up appointment with Dr. Schmid at 315 today. All other review of systems reviewed and negative except as stated. Timing/Duration: 1 hour Severity/Quality: dull, pressure Location: substernal, epigastric Radiation: no radiation Activities at Onset: activity Prior CP/Workup: cardiac cath ASA po ALARM MECHANISM ADJUSTER: No NTG SL ALARM MECHANISM ADJUSTER: No Associated Symptoms: shortness of breath Allergies and Home Medications Allergies Coded Allergies: lisinopril (Verified Allergy, Intermediate, COUGH, 09/08/17) Patient Home Medication List Home Medication List Reviewed: Yes Amlodipine Besylate (Amlodipine Besylate) 10 Mg Tablet, 10 MG PO DAILY, (Reported) Entered as Reported by: JASMYNE FLOYD on 09/08/17 1108 Last Action: Reviewed Aspirin (Low Dose Aspirin EC) 81 Mg Tablet., 81 MG PO DAILY, (Reported) Entered as Reported by: ZACH BAXTER on 12/05/211517 Last Action: Reviewed Carvedilol (Coreg) 25 Mg Tab, 25 MG PO DAILY, (Reported) Entered as Reported by: JASMYNE FLOYD on 09/08/171623 Last Action: Reviewed Carvedilol (Coreg) 25 Mg Tab, 12.5 MG PO HS, (Reported) Entered as Reported by: JASMYNE FLOYD on 09/08/171623 Last Action: Reviewed Cetirizine HCl (Cetirizine HCl) 10 Mg Tablet, 10 MG PO DAILY, (Reported) Entered as Reported by: ZACH BAXTER on 12/05/211518 Last Action: Reviewed Clopidogrel Bisulfate (Clopidogrel) 75 Mg Tablet, 75 MG PO Q48H, (Reported) Entered as Reported by: ZACH BAXTER on 12/05/211517 Last Action: Reviewed Esomeprazole Magnesium (Nexium 24Hr) 20 Mg Tablet.dr, 20 MG PO DAILY PRN for HEARTBURN, (Reported) Entered as Reported by: ZACH BAXTER on 12/05/211517 Last Action: Reviewed Glimepiride (Glimepiride) 2 Mg Tablet, 2 MG PO DAILY, (Reported) Entered as Reported by: ZACH BAXTER on 12/05/211517 Last Action: Reviewed Losartan Potassium (Losartan Potassium) 50 Mg Tablet, 50 MG PO DAILY, (Reported) Entered as Reported by: ZACH BAXTER on 12/05/211517 Last Action: Reviewed Metformin HCl (Metformin HCl) 1,000 Mg Tablet, 1,000 MG PO BID, (Reported) Entered as Reported by: JASMYNE FLOYD on 09/08/171623 Last Action: Reviewed Metformin HCl (Metformin HCl) 1,000 Mg Tablet, 500 MG PO 1700, (Reported) Entered as Reported by: JASMYNE FLOYD on 09/08/171623 Last Action: Reviewed Multivitamin (Multivitamin) 1 Each Tablet, 1 EACH PO DAILY, (Reported) Entered as Reported by: ZACH BAXTER on 12/05/211517 Last Action: Reviewed Sitagliptin Phosphate (Januvia) 50 Mg Tablet, 50 MG PO BID, (Reported) Entered as Reported by: JASMYNE FLOYD on 09/08/171627 Last Action: Reviewed Discontinued Medications Aspirin (Aspirin EC) 81 Mg Tablet.dr, 81 MG PO DAILY, (Reported) Discontinued Reason: Duplicate Order Entered as Reported by: JASMYNE FLOYD on 09/08/171627 Last Action: Discontinued Atorvastatin Calcium (Atorvastatin Calcium) 80 Mg Tablet, 80 MG PO HS Discontinued Reason: No Longer Taking Prescribed by: Teo MAIN on 05/20/19 100 Last Action: Discontinued Clopidogrel Bisulfate (Clopidogrel) 75 Mg Tablet, 75 MG PO DAILY Discontinued Reason: Duplicate Order Prescribed by: Teo MAIN on 05/20/19 100 Last Action: Discontinued Loratadine (Loratadine) 10 Mg Tablet, 10 MG PO DAILY, (Reported) Discontinued Reason: Duplicate Order Entered as Reported by: JASMYNE FLOYD on 09/08/171627 Last Action: Discontinued Review of Systems Review of Systems Constitutional: see HPI EENTM: Nose Congestion Respiratory: Shortness of Air Cardiovascular: Chest Pain Gastrointestinal: No Symptoms Reported Genitourinary: No Symptoms Reported Musculoskeletal: no symptoms reported Skin: no symptoms reported All Other Systems Reviewed Negative Unless Noted: Yes Past Mxllnvv-Mqfwla-Ovfuol Hx Patient Social History Tobacco Use?: No Substance use?: No Alcohol Use?: No Pt feels they are or have been: No Immunizations Up To Date Tetanus Booster (TDap): Unknown PED Vaccines UTD: Yes First/Initial COVID19 Vaccinat: moderna Second COVID19 Vaccination Tito: moderna COVID19 Vaccine Transmission Supervisor: moderna Seasonal Allergies Seasonal Allergies: Yes Past Medical History Surgery/Hospitalization HX: cad, stents, htn, high cholesterol, dm, diverticulitis Surgeries: Yes (hernia repair 2008) Appendectomy, Coronary Stent Respiratory: No Currently Using CPAP: No Currently Using BIPAP: No Cardiac: Yes (2 STENTS, 2 balloons) Coronary Artery Disease, High Cholesterol, Hypertension Neurological: No Genitourinary: No Gastrointestinal: No Musculoskeletal: No Endocrine: Yes Diabetes, Non-Insulin dep HEENT: No Cancer: No Psychosocial: No Integumentary: No Blood Disorders: No Family Medical History Cardiovascular disease 19 FATHER 19 MOTHER Completed stroke 19 FATHER 19 MOTHER Diabetes mellitus 19 FATHER 19 MOTHER G8 BROTHER Hypercholesterolemia G8 BROTHER Hypertension 19 FATHER 19 MOTHER G8 BROTHER Neoplasm 19 FATHER Physical Exam Vital Signs Vital Signs - First Documented 12/05/21 07:08 Temp 37.3 Pulse 75 Resp 18 B/P (MAP) 156/82 (106) Pulse Ox 97 Capillary Refill : Less Than 3 Seconds Height, Weight, BMI Height: 5'11.00" Weight: 205lbs. 8.0oz. 92.754554uu; 29.00 BMI Method:Stated General Appearance: No Apparent Distress, WD/WN HEENT: PERRL/EOMI Neck: Normal Inspection Respiratory: Lungs Clear, Normal Breath Sounds, No Accessory Muscle Use, No Respiratory Distress, Other (no reproducible chest wall tenderness) Cardiovascular: Regular Rate, Rhythm, Normal Peripheral Pulses, Other (brisk capillary refill) Gastrointestinal: Normal Bowel Sounds, Non Tender, Soft Extremity: Normal Capillary Refill, Normal Inspection, Normal Range of Motion, Non Tender, No Calf Tenderness, No Pedal Edema Neurologic/Psychiatric: Alert, Oriented x3, No Motor/Sensory Deficits, Normal Mood/Affect Skin: Normal Color, Warm/Dry, Other (no rashes) Progress/Results/Core Measures Results/Orders Lab Results Laboratory Tests Test 12/05/21 07:05 Range/Units White Blood Count 7.1 4.3-11.0 10^3/uL Red Blood Count 4.49 4.30-5.52 10^6/uL Hemoglobin 12.7 L 13.3-17.7 g/dL Hematocrit 39 L 40-54 % Mean Corpuscular Volume 87 80-99 fL Mean Corpuscular Hemoglobin 28 25-34 pg Mean Corpuscular Hemoglobin Concent 33 32-36 g/dL Red Cell Distribution Width 13.3 10.0-14.5 % Platelet Count 223 130-400 10^3/uL Mean Platelet Volume 10.1 9.0-12.2 fL Immature Granulocyte % (Auto) 0 % Neutrophils (%) (Auto) 62 42-75 % Lymphocytes (%) (Auto) 22 12-44 % Monocytes (%) (Auto) 10 0-12 % Eosinophils (%) (Auto) 5 0-10 % Basophils (%) (Auto) 1 0-10 % Neutrophils # (Auto) 4.4 1.8-7.8 10^3/uL Lymphocytes # (Auto) 1.6 1.0-4.0 10^3/uL Monocytes # (Auto) 0.7 0.0-1.0 10^3/uL Eosinophils # (Auto) 0.4 H 0.0-0.3 10^3/uL Basophils # (Auto) 0.1 0.0-0.1 10^3/uL Immature Granulocyte # (Auto) 0.0 0.0-0.1 10^3/uL Prothrombin Time 13.0 12.2-14.7 SEC INR Comment 0.9 0.8-1.4 Activated Partial Thromboplast Time 33 24-35 SEC Sodium Level 139 135-145 MMOL/L Potassium Level 4.2 3.6-5.0 MMOL/L Chloride Level 104 98-107 MMOL/L Carbon Dioxide Level 23 21-32 MMOL/L Anion Gap 12 5-14 MMOL/L Blood Urea Nitrogen 11 7-18 MG/DL Creatinine 0.96 0.60-1.30 MG/DL Estimat Glomerular Filtration Rate 92 BUN/Creatinine Ratio 11 Glucose Level 130 H 70-105 MG/DL Calcium Level 9.5 8.5-10.1 MG/DL Corrected Calcium 9.5 8.5-10.1 MG/DL Magnesium Level 1.6 1.6-2.4 MG/DL Total Bilirubin 0.6 0.1-1.0 MG/DL Aspartate Amino Transf (AST/SGOT) 15 5-34 U/L Alanine Aminotransferase (ALT/SGPT) 9 0-55 U/L Alkaline Phosphatase 54 40-136 U/L Myoglobin 41.5 10.0-92.0 NG/ML Troponin I < 0.028 <0.028 NG/ML Total Protein 6.8 6.4-8.2 GM/DL Albumin 4.0 3.2-4.5 GM/DL My Orders Orders - SIMA GOODMAN MD Ekg Tracing (12/05/21 07:07) Cbc With Automated Diff (12/05/21 07:25) Magnesium (12/05/21 07:25) Chest 1 View, Ap/Pa Only (12/05/21 07:25) Comprehensive Metabolic Panel (12/05/21 07:25) Myoglobin Serum (12/05/21 07:25) Protime With Inr (12/05/21 07:25) Partial Thromboplastin Time (12/05/21 07:25) O2 (12/05/21 07:25) Monitor-Rhythm Ecg Trace Only (12/05/21 07:25) Lipid Panel (12/06/21 06:00) Ed Iv/Invasive Line Start (12/05/21 07:25) Troponin I [place] (12/05/21 07:25) Aspirin Chewable Tablet (Baby Aspirin Ch (12/05/21 07:30) Ed Admission (Communication) (12/05/21 09:12) Cho 75g/M 0snack (21-2400 [place]) (12/05/21 Breakfast) Medications Given in ED Vital Signs/I&O 12/05/21 07:08 Temp 37.3 Pulse 75 Resp 18 B/P (MAP) 156/82 (106) Pulse Ox 97 Blood Pressure Mean: 106 Admisison Planning May Need Admission (Planning): 09:00 Initial ECG Impression Date: Dec 05, 2021 Initial ECG Impression Time: 07:09 Initial ECG Rate: 77 Initial ECG Rhythm: Normal Sinus Initial ECG Intervals NJ interval 133 QRS 99 QTc 382 Comment No ectopy, no ST segment elevation or depression Diagnostic Imaging Diagonstic Imaging: Xray Plain Films/CT/US/NM/MRI: chest Comments [facility], [place] NAME: JOSH MALLOY [facility] REC#: [id number] PT STATUS: REG ER : 1965 PHYSICIAN: SIMA GOODMAN MD ADMIT DATE: 12/05/21/ER Signed Date of Exam:12/05/21 CHEST 1 VIEW, AP/PA ONLY CHEST 1 VIEW, AP/PA ONLY Indication: Chest pain. Comparison: 05/19/2019 Findings: No focal airspace disease in the visualized lungs. Please note that the posterior lower lobes are poorly evaluated by portable radiography. No pleural effusion or pneumothorax. Normal cardiomediastinal silhouette. Impression: 1. No acute cardiopulmonary process by portable radiography. Dictated by: Dictated on workstation # [id number] Dict: 12/05/21733 Trans: 12/05/21733 [facility] [id number] Interpreted by: JUANI DIAZ MD Electronically signed by: JUANI DIAZ MD 12/05/21 0734 Departure Communication (Admissions) Time/Spoke to Admitting Phy: 09:[address] Samaniego Time/Spoke to Consulting Phy: 08:[address] Schmid who recommends observation admission. Impression Primary Impression: Unstable angina Additional Impressions: Diabetes Qualified Codes: E11.9 - Type 2 diabetes mellitus without complications History of coronary artery disease Disposition: ADMITTED INPATIENT Condition: Stable Admissions Decision to Admit Reason: Admit from ER (General) Decision to Admit/Date: Dec 05, 2021 Time/Decision to Admit Time: 09:08 Departure-Patient Inst. Referrals: MASSIEL VILLATORO MD (PCP/Family) Primary Care Physician SIMA GOODMAN MD Dec 05, 2021 07:30
[2021-12-05 07:36] LABS: BASOPHILS # (AUTO) 0.1 10^3/uL (0.0-0.1); BASOPHILS % (AUTO) 1 % (0-10); EOSINOPHILS # (AUTO) 0.4 10^3/uL (0.0-0.3); EOSINOPHILS % (AUTO) 5 % (0-10); HEMATOCRIT 39 % (40-54); HEMOGLOBIN 12.7 g/dL (13.3-17.7); LYMPHOCYTES # (AUTO) 1.6 10^3/uL (1.0-4.0); LYMPHOCYTES % (AUTO) 22 % (12-44); MEAN CORPUSCULAR HEMOGLOBIN 28 pg (25-34); MEAN CORPUSCULAR HGB CONC 33 g/dL (32-36); MEAN CORPUSCULAR VOLUME 87 fL (80-99); MEAN PLATELET VOLUME 10.1 fL (9.0-12.2); MONOCYTES # (AUTO) 0.7 10^3/uL (0.0-1.0); MONOCYTES % (AUTO) 10 % (0-12); NEUTROPHILS # (AUTO) 4.4 10^3/uL (1.8-7.8); NEUTROPHILS % (AUTO) 62 % (42-75); PLATELET COUNT 223 10^3/uL (130-400); WHITE BLOOD COUNT 7.1 10^3/uL (4.3-11.0)
--- NOTE | 2021-12-05 07:36 | Diagnostic Imaging Report ---
CHEST 1 VIEW, AP/PA ONLY Indication: Chest pain. Comparison: 05/19/2019 Findings: No focal airspace disease in the visualized lungs. Please note that the posterior lower lobes are poorly evaluated by portable radiography. No pleural effusion or pneumothorax. Normal cardiomediastinal silhouette. Impression: 1. No acute cardiopulmonary process by portable radiography. Dictated by: Dictated on workstation # [id number]
[2021-12-05 07:43] LABS: POTASSIUM 4.2 MMOL/L (3.6-5.0)
[2021-12-05 07:44] LABS: CALCIUM 9.5 MG/DL (8.5-10.1)
[2021-12-05 07:45] LABS: INR 0.9 (0.8-1.4); TOTAL PROTEIN 6.8 GM/DL (6.4-8.2)
[2021-12-05 07:47] LABS: BILIRUBIN,TOTAL 0.6 MG/DL (0.1-1.0)
[2021-12-05 07:48] LABS: CREATININE SERUM 0.96 MG/DL (0.60-1.30)
[2021-12-05 07:52] LABS: MAGNESIUM 1.6 MG/DL (1.6-2.4)
--- NOTE | 2021-12-05 09:05 | Consultation-Cardiology ---
HPI-Cardiology Cardiology Consultation: Date of Consultation 12/05/21 Date of Admission Attending Physician Admitting Physician Latosha Lundberg MD Consulting Physician IZABEL MUSTAFA Review of Systems-Cardiology All Other Systems Reviewed Negative Unless Noted: Yes DEX-Tnpsme-Wamxay Hx Patient Social History 2nd Hand Smoke Exposure: No Have you traveled recently?: No Alcohol Use?: No Pt feels they are or have been: No Immunizations Up To Date Tetanus Booster (TDap): Unknown Past Medical History PMH As described under Assessment. Family Medical History Family History: Cardiovascular disease 19 FATHER 19 MOTHER Completed stroke 19 FATHER 19 MOTHER Diabetes mellitus 19 FATHER 19 MOTHER G8 BROTHER Hypercholesterolemia G8 BROTHER Hypertension 19 FATHER 19 MOTHER G8 BROTHER Neoplasm 19 FATHER Allergies and Home Medications Allergies Coded Allergies: lisinopril (Verified Allergy, Intermediate, COUGH, 09/08/17) Patient Home Medication List Amlodipine Besylate (Amlodipine Besylate) 10 Mg Tablet, 10 MG PO DAILY, (Reported) Entered as Reported by: JASMYNE FLOYD on 09/08/17 1628 Aspirin (Aspirin EC) 81 Mg Tablet.dr, 81 MG PO DAILY, (Reported) Entered as Reported by: JASMYNE FLOYD on 09/08/17 1628 Atorvastatin Calcium (Atorvastatin Calcium) 80 Mg Tablet, 80 MG PO HS Prescribed by: Teo SARMIENTO on 05/20/19 1006 Carvedilol (Coreg) 25 Mg Tab, 25 MG PO DAILY, (Reported) Entered as Reported by: JASMYNE FLOYD on 09/08/17 1624 Carvedilol (Coreg) 25 Mg Tab, 12.5 MG PO HS, (Reported) Entered as Reported by: JASMYNE FLOYD on 09/08/17 1624 Clopidogrel Bisulfate (Clopidogrel) 75 Mg Tablet, 75 MG PO DAILY Prescribed by: Teo SARMIENTO on 05/20/19 1006 Loratadine (Loratadine) 10 Mg Tablet, 10 MG PO DAILY PRN for ALLERGIES, (Reported) Entered as Reported by: JASMYNE FLOYD on 09/08/17 1628 Metformin HCl (Metformin HCl) 1,000 Mg Tablet, 1,000 MG PO BID, (Reported) Entered as Reported by: JASMYNE FLOYD on 09/08/17 1624 Metformin HCl (Metformin HCl) 1,000 Mg Tablet, 500 MG PO 1700, (Reported) Entered as Reported by: JASMYNE FLOYD on 09/08/17 1624 Multivitamin (Daily Multiple Vitamin) 1 Each Tablet, 1 TAB PO DAILY, (Reported) Entered as Reported by: JASMYNE FLOYD on 09/08/17 1628 Sitagliptin Phosphate (Januvia) 50 Mg Tablet, 50 MG PO DAILY, (Reported) Entered as Reported by: JASMYNE FLOYD on 09/08/17 1628 Physical Exam-Cardiology Physical Exam Vital Signs/I&O 12/05/21 07:08 Temp 37.3 Pulse 75 Resp 18 B/P (MAP) 156/82 (106) Pulse Ox 97 Capillary Refill : Less Than 3 Seconds Data Review Labs Laboratory Tests 12/05/21 07:05: White Blood Count 7.1, Red Blood Count 4.49, Hemoglobin 12.7L, Hematocrit 39L, Mean Corpuscular Volume 87, Mean Corpuscular Hemoglobin 28, Mean Corpuscular Hemoglobin Concent 33, Red Cell Distribution Width 13.3, Platelet Count 223, Mean Platelet Volume 10.1, Immature Granulocyte % (Auto) 0, Neutrophils (%) (Auto) 62, Lymphocytes (%) (Auto) 22, Monocytes (%) (Auto) 10, Eosinophils (%) (Auto) 5, Basophils (%) (Auto) 1, Neutrophils # (Auto) 4.4, Lymphocytes # (Auto) 1.6, Monocytes # (Auto) 0.7, Eosinophils # (Auto) 0.4H, Basophils # (Auto) 0.1, Immature Granulocyte # (Auto) 0.0, Prothrombin Time 13.0, INR Comment 0.9, Activated Partial Thromboplast Time 33, Sodium Level 139, Potassium Level 4.2, Chloride Level 104, Carbon Dioxide Level 23, Anion Gap 12, Blood Urea Nitrogen 11, Creatinine 0.96, Estimat Glomerular Filtration Rate 92, BUN/Creatinine Ratio 11, Glucose Level 130H, Calcium Level 9.5, Corrected Calcium 9.5, Magnesium Level 1.6, Total Bilirubin 0.6, Aspartate Amino Transf (AST/SGOT) 15, Alanine Aminotransferase (ALT/SGPT) 9, Alkaline Phosphatase 54, Myoglobin 41.5, Troponin I < 0.028, Total Protein 6.8, Albumin 4.0 Laboratory Tests 12/05/21 07:05 Radiology NAME: JOSH MALLOY REC#: [id number] PT STATUS: REG ER : 1965 PHYSICIAN: SIMA GOODMAN MD ADMIT DATE: 12/05/21/ER Signed Date of Exam:12/05/21 CHEST 1 VIEW, AP/PA ONLY CHEST 1 VIEW, AP/PA ONLY Indication: Chest pain. Comparison: 05/19/2019 Findings: No focal airspace disease in the visualized lungs. Please note that the posterior lower lobes are poorly evaluated by portable radiography. No pleural effusion or pneumothorax. Normal cardiomediastinal silhouette. Impression: 1. No acute cardiopulmonary process by portable radiography. Dictated by: Dictated on workstation # [id number] Dict: 12/05/21733 Trans: 12/05/21733 [facility] [id number] Interpreted by: JUANI DIAZ MD Electronically signed by: JUANI DIAZ MD 12/05/2134 A/P-Cardiology Assessment/Admission Diagnosis CAD - coronary angiography on 10/04/[address] Sarmiento which showed moderate to severe lesions in the mid RCA FFR was 0.86 which is acceptable therefore PCI was deferred. Patent left main. LAD has diffuse severe disease in the entire length especially in the mid and distal segments. Left circumflex artery has a patent stent in the distal left circumflex artery with diffuse distal disease. A first OM 1 artery has severe 90 percent stenosis at the ostium. And then has another stent with severe in-stent stenosis. This was treated with a 2.5X 12 mm balloon. Excellent results with 20 percent residue stenosis. Normal LV function with no wall motion abnormalities. - Most recent cardiac cath of 05-19-[address] Sarmiento showed severe 99% ISR of the stent in the mid segment of the OM1 treated successfully with PTCA - Echo 05/19/2019 LVEF 55-65%, Grade I DD. LA dilated. Trivial AI. HTN - controlled HLD - statin tx - managed by PCP DM 2 - managed by PCP Clinical Quality Measures AMI/AHF: ASA po Prior to arrival: IZABEL Robb Dec 05, 2021 09:05
--- NOTE | 2021-12-05 09:19 | Consultation-Cardiology ---
HPI-Cardiology Cardiology Consultation: Date of Consultation 12/05/21 Time Seen by a Provider: 09:10 Date of Admission Attending Physician Admitting Physician Latosha Lundberg MD Consulting Physician NATALEE ADAN MD, MA, FACP, FACC, FSCAI, CCDS HPI: Chief Complaint: Chest discomfort 56 yo man with 2 days of L upper chest discomfort, lasting from seconds to minutes, soreness, no radiation, mild to mod, no associated symptoms, associated with L arm tingling. Also notes chest pressure that has been intermittent las ting several minutes for the last several days. No n/v/d. No shortness of breath Review of Systems-Cardiology Review of Systems Constitutional: No weight loss, No weight gain Eyes: No vision change Ears/Nose/Throat: No recent hearing loss Respiratory: As described under HPI Cardiovascular: As described under HPI Gastrointestinal: No constipation; diarrhea (chronic, intermittent loose stools), nausea; No vomiting Genitourinary: No dysuria, No hematuria Musculoskeletal: No back pain Skin: No rash, No ulcerations Psychiatric/Neurological: No seizure, No focal weakness, No syncope Hematologic: No bleeding abnormalities All Other Systems Reviewed Negative Unless Noted: Yes ATL-Xuqdtf-Zktkjx Hx Patient Social History 2nd Hand Smoke Exposure: No Have you traveled recently?: No Alcohol Use?: No Pt feels they are or have been: No Immunizations Up To Date Tetanus Booster (TDap): Unknown Past Medical History PMH As described under Assessment. Family Medical History Family History: Cardiovascular disease 19 FATHER 19 MOTHER Completed stroke 19 FATHER 19 MOTHER Diabetes mellitus 19 FATHER 19 MOTHER G8 BROTHER Hypercholesterolemia G8 BROTHER Hypertension 19 FATHER 19 MOTHER G8 BROTHER Neoplasm 19 FATHER Allergies and Home Medications Allergies Coded Allergies: lisinopril (Verified Allergy, Intermediate, COUGH, 09/08/17) Patient Home Medication List Home Medication List Reviewed: Yes Amlodipine Besylate (Amlodipine Besylate) 10 Mg Tablet, 10 MG PO DAILY, (Reported) Entered as Reported by: JASMYNE FLOYD on 09/08/17 1628 Aspirin (Aspirin EC) 81 Mg Tablet.dr, 81 MG PO DAILY, (Reported) Entered as Reported by: JASMYNE FLOYD on 09/08/17 1628 Atorvastatin Calcium (Atorvastatin Calcium) 80 Mg Tablet, 80 MG PO HS Prescribed by: Teo SARMIENTO on 05/20/19 1006 Carvedilol (Coreg) 25 Mg Tab, 25 MG PO DAILY, (Reported) Entered as Reported by: JASMYNE FLOYD on 09/08/17 162 Carvedilol (Coreg) 25 Mg Tab, 12.5 MG PO HS, (Reported) Entered as Reported by: JASMYNE FLOYD on 09/08/17 162 Clopidogrel Bisulfate (Clopidogrel) 75 Mg Tablet, 75 MG PO DAILY Prescribed by: Teo SARMIENTO on 05/20/19 1006 Loratadine (Loratadine) 10 Mg Tablet, 10 MG PO DAILY PRN for ALLERGIES, (Reported) Entered as Reported by: JASMYNE FLOYD on 09/08/17 162 Metformin HCl (Metformin HCl) 1,000 Mg Tablet, 1,000 MG PO BID, (Reported) Entered as Reported by: JASMYNE FLOYD on 09/08/17 162 Metformin HCl (Metformin HCl) 1,000 Mg Tablet, 500 MG PO 1700, (Reported) Entered as Reported by: JASMYNE FLOYD on 09/08/17 162 Multivitamin (Daily Multiple Vitamin) 1 Each Tablet, 1 TAB PO DAILY, (Reported) Entered as Reported by: JASMYNE FLOYD on 09/08/17 162 Sitagliptin Phosphate (Januvia) 50 Mg Tablet, 50 MG PO DAILY, (Reported) Entered as Reported by: JASMYNE FLOYD on 09/08/171627 Physical Exam-Cardiology Physical Exam Vital Signs/I&O 12/05/21 07:08 Temp 37.3 Pulse 75 Resp 18 B/P (MAP) 156/82 (106) Pulse Ox 97 Capillary Refill : Less Than 3 Seconds Constitutional: AAO x 3, well-developed, well-nourished HEENT: EOMI, hearing is well preserved, xanthelasmas are seen Neck: carotid pulses are 2 + bilaterally, with good upstrokes Respiratory: No accessory muscle use; other (good, bilat air entry) Cardiovascular: regular rate-rhythm, S1 and S2, systolic murmur (soft LEATHA at card base) Gastrointestinal: No tender; soft; No guarding, No rebound; audible bowel sounds Extremities: other (chronic intermittent ankle swelling, more on R ankle); No clubbing Skin: No rash on exposed areas, No ulcerations on exposed areas Data Review Labs Laboratory Tests 12/05/21 07:05: White Blood Count 7.1, Red Blood Count 4.49, Hemoglobin 12.7L, Hematocrit 39L, Mean Corpuscular Volume 87, Mean Corpuscular Hemoglobin 28, Mean Corpuscular Hemoglobin Concent 33, Red Cell Distribution Width 13.3, Platelet Count 223, Mean Platelet Volume 10.1, Immature Granulocyte % (Auto) 0, Neutrophils (%) (Auto) 62, Lymphocytes (%) (Auto) 22, Monocytes (%) (Auto) 10, Eosinophils (%) (Auto) 5, Basophils (%) (Auto) 1, Neutrophils # (Auto) 4.4, Lymphocytes # (Auto) 1.6, Monocytes # (Auto) 0.7, Eosinophils # (Auto) 0.4H, Basophils # (Auto) 0.1, Immature Granulocyte # (Auto) 0.0, Prothrombin Time 13.0, INR Comment 0.9, Activated Partial Thromboplast Time 33, Sodium Level 139, Potassium Level 4.2, Chloride Level 104, Carbon Dioxide Level 23, Anion Gap 12, Blood Urea Nitrogen 11, Creatinine 0.96, Estimat Glomerular Filtration Rate 92, BUN/Creatinine Ratio 11, Glucose Level 130H, Calcium Level 9.5, Corrected Calcium 9.5, Magnesium Level 1.6, Total Bilirubin 0.6, Aspartate Amino Transf (AST/SGOT) 15, Alanine Aminotransferase (ALT/SGPT) 9, Alkaline Phosphatase 54, Myoglobin 41.5, Troponin I < 0.028, Total Protein 6.8, Albumin 4.0 Laboratory Tests 12/05/21 07:05 A/P-Cardiology Assessment/Admission Diagnosis Chest discomfort CAD - coronary angiography on 10/04/[address] Sarmiento which showed moderate to severe lesions in the mid RCA FFR was 0.86 which is acceptable therefore PCI was deferred. Patent left main. LAD has diffuse severe disease in the entire length especially in the mid and distal segments. Left circumflex artery has a patent stent in the distal left circumflex artery with diffuse distal disease. A first OM 1 artery has severe 90 percent stenosis at the ostium. And then has another stent with severe in-stent stenosis. This was treated with a 2.5X 12 mm balloon. Excellent results with 20 percent residue stenosis. Normal LV function with no wall motion abnormalities. - Most recent cardiac cath of 05-19-[address] Sarmiento showed severe 99% ISR of the stent in the mid segment of the OM1 treated successfully with PTCA - Echo 05/19/2019 LVEF 55-65%, Grade I DD. LA dilated. Trivial AI. HTN - controlled HLD - statin tx - managed by PCP DM 2 - managed by PCP Discussion and Recomendations * Recurrent chest discomfort in a 56 yo with known CAD and multiple risk factors is suggestive of recurrent, unstable angina. Card cath recommended. Discussed. Provides informed consent Clinical Quality Measures AMI/AHF: ASA po Prior to arrival: NATALEE Santos MD FACP FAC CCDS Dec 05, 2021 09:19
[2021-12-05] MEDS ORDERED: LIDOCAINE 1% INJ 20 ML VIAL ONE (09:23)
[2021-12-05] MEDS ORDERED: NS IV 1000 ML 1,000 ML ONE (09:24)
[2021-12-05] MEDS ORDERED: HEParin (CATH LAB) 2,000 ML IV ONE (09:24)
[2021-12-05] MEDS ORDERED: fentaNYL INJ 100 MCG/2 ML AMP ONE (11:39)
[2021-12-05] MEDS ORDERED: MIDAZOLAM 5 MG/5 ML (VERSED) VIAL ONE (11:41)
[2021-12-05] MEDS ORDERED: ACETAMINOPHEN 325 MG TABLET PO PRN (11:45)
[2021-12-05] MEDS ORDERED: ENOXAPARIN 40 MG/0.4 ML (LOVENOX) SYR SC SCH ×2 (11:45→18:00)
[2021-12-05] MEDS ORDERED: polyethylene glycoL POWDER 17 GM (MIRALAX) PACK PO PRN (11:45)
[2021-12-05] MEDS ORDERED: MELATONIN 3 MG TABLET PO PRN (11:45)
[2021-12-05] MEDS ORDERED: ONDANSETRON 4 MG/2 ML (SDV) Z0FRAN IV PRN (11:45)
[2021-12-05] MEDS ORDERED: ONDANSETRON 4 MG (ZOFRAN) ORAL DISSOLVE TAB PO PRN (11:45)
[2021-12-05] MEDS ORDERED: diphenhydrAMINE 25 MG TAB (BENADRYL) PO PRN (11:45)
[2021-12-05] MEDS ORDERED: ANTACID SUSP 30 ML UDC (MYLANTA) PO PRN (11:45)
[2021-12-05] MEDS ORDERED: NS IV 1000 ML 1,000 ML IV SCH (13:00)
[2021-12-05] MEDS ORDERED: PATIENT MAY USE OWN MEDS, ALL PO SCH (13:00)
[2021-12-05] MEDS ORDERED: CLOPIDOGREL 75 MG (PLAVIX) TABLET PO NR (13:15)
--- NOTE | 2021-12-05 13:39 | CARDIAC CATHETERIZATION ---
DATE OF SERVICE: 12/05/2021 CARDIAC CATHETERIZATION REPORT The patient is a 56-year-old gentleman who is known to have coronary artery disease and has previously had coronary stenting. Last coronary intervention was in 2019. He presented with chest discomfort. Given his history and continuing risk factors, cardiac catheterization was carried out after having obtained an informed consent. DESCRIPTION OF PROCEDURE: He was brought to the cardiac catheterization laboratory. Right groin was prepared and draped in the usual sterile fashion. Lidocaine 1% was used for local anesthesia. Modified Seldinger technique was used to advance a 5-Welsh sheath in right femoral artery. Angiography of the right femoral artery was carried out through the sheath. A 5-Welsh JL4 catheter was used for left coronary angiography, 5-Welsh JR4 catheter was used for right coronary angiography, 5-Welsh pigtail catheter was used for left heart catheterization and left ventricular angiography. Following completion of the diagnostic procedure, Mynx was used to achieve hemostasis following sheath removal. He tolerated the procedure well. HEMODYNAMICS: Left ventricular end-diastolic pressure following coronary angiography was 12 mmHg. There was no significant pressure gradient on pullback across the aortic valve. Ascending aortic pressure was 113/58 with a mean of 83 mmHg. CORONARY ANGIOGRAPHY: Left main coronary artery is free of significant disease. Left anterior descending, left circumflex, and right coronary artery all have diffuse mild to moderate plaque with stenoses of up to 50% at several spots. Multiple, small caliber posterolateral branches of the dominant right coronary artery exhibits total or near total occlusion, unchanged from the cardiac catheterization of 05/2019. Patent stents are seen in the distal left circumflex and the mid portion of the second obtuse marginal. LEFT VENTRICULAR ANGIOGRAPHY: Left ventricular angiography was carried out in the right anterior oblique projection. Global left ventricular systolic function is normal. No regional wall motion abnormalities are seen in this view. Left ventricular ejection fraction is approximately 55% to 60%. CONCLUSIONS: 1. Diffuse mild to moderate coronary artery disease involving all coronary vessels. 2. Patent stents in the distal left circumflex and in the mid portion of the second obtuse marginal. Multiple stenoses up to 50% in all coronary vessels. Total or subtotal occlusion of multiple distal branches of the right coronary, unchanged from study of 2019. 3. Normal left ventricular end-diastolic pressure. 4. Normal global left ventricular systolic function with ejection fraction approximately 55% to 60%. DISCUSSION AND RECOMMENDATIONS: The angiogram today did not show acute changes. It does not appear that his chest discomfort would have been of coronary origin. Nevertheless, he has diffuse disease. We recommend continuation of his current regimen and focus on risk factor modification that has been discussed. We are changing Plavix to 75 mg daily. Close outpatient followup is advised. Job ID: [id number] DocumentID: [id number] Dictated Date: 12/05/2021 13:04:42 Solar Project Manager Date: 12/05/2021 13:38:43 Dictated By: NATALEE ADAN MD, MA, FACP, FACC,
[2021-12-05] MEDS ORDERED: ESOM20TA PO (15:18)
[2021-12-05] MEDS ORDERED: CLOP75TA28 PO (15:18)
[2021-12-05] MEDS ORDERED: GLIM2TAB4 PO (15:18)
[2021-12-05] MEDS ORDERED: MULT-1136 PO (15:18)
[2021-12-05] MEDS ORDERED: LOSA50TA63 PO (15:18)
[2021-12-05] MEDS ORDERED: ASPI81TA16 PO (15:18)
[2021-12-05] MEDS ORDERED: CETI10TA17 PO (15:19)
[2021-12-05] MEDS: inSUlin ASPART (NovoLOG) 1 UNIT/0.01 ML (CHARGE PER UNIT) SC SCH ×4 (15:34→20:38)
[2021-12-05] MEDS: NS IV 1000 ML 1,000 ML IV SCH ×2 (15:47→19:16)
--- NOTE | 2021-12-05 19:03 | History & Physical-Hospitalist ---
History of Present Illness HPI/Chief Complaint Yonis Nolasco is a 56 year old male with PMH HTN, HLD, T2DM, CAD, who presented with chest pain. He developed central chest pressure this morning. The pain did not radiate. He does report tingling in his left arm. He denies nausea, vomiting, diaphoresis, and shortness of breath. Upon my exam, his chest pain is completely resolved. Due to his history of CAD requiring intervention and his concerning symptoms, cardiology plans to perform left heart catheterization today to further evaluate. Source: patient Exam Limitations: no limitations Date Seen 12/05/21 Time Seen by a Provider: 11:15 Attending Physician Kalani Samaniego MD PCP Latosha Lundberg MD Referring Physician Date of Admission Dec 05, 2021 at 09:14 Home Medications & Allergies Home Medications Reviewed patient Home Medication Reconciliation performed by pharmacy medication reconciliations compounding technician and/or nursing. Patients Allergies have been reviewed. Allergies Allergies Coded Allergies lisinopril (Verified Allergy, Intermediate, COUGH, 09/08/17) Past Hkbwrin-Nkjhot-Xdfzou Hx Patient Social History Tobacco Use?: No Substance use?: No Alcohol Use?: No Pt feels they are or have been: No Immunizations Up To Date First/Initial COVID19 Vaccinat: moderna Second COVID19 Vaccination Tito: moderna Tetanus Booster (TDap): Unknown Hepatitis A: No Hepatitis B: No PED Vaccines UTD: Yes Seasonal Allergies Seasonal Allergies: Yes Current Status Advance Directives: No Primary Language: Prydeinig Preferred Spoken Language: Prydeinig Past Medical History Surgeries: Appendectomy, Coronary Stent Currently Using CPAP: No Currently Using BIPAP: No Coronary Artery Disease, High Cholesterol, Hypertension Diabetes, Non-Insulin dep Blood Disorders: No Family Medical History Cardiovascular disease 19 FATHER 19 MOTHER Completed stroke 19 FATHER 19 MOTHER Diabetes mellitus 19 FATHER 19 MOTHER G8 BROTHER Hypercholesterolemia G8 BROTHER Hypertension 19 FATHER 19 MOTHER G8 BROTHER Neoplasm 19 FATHER Review of Systems Constitutional: no symptoms reported EENTM: no symptoms reported Respiratory: no symptoms reported Cardiovascular: chest pain Gastrointestinal: no symptoms reported Genitourinary: no symptoms reported Musculoskeletal: no symptoms reported Skin: no symptoms reported Psychiatric/Neurological: No Symptoms Reported Physical Exam Physical Exam Vital Signs Vital Signs - First Documented 12/05/21 12/05/21 07:08 11:25 Temp 37.3 Pulse 75 Resp 18 B/P (MAP) 156/82 (106) Pulse Ox 97 O2 Delivery Room Air Capillary Refill : Less Than 3 Seconds Height, Weight, BMI Height: 5'11.00" Weight: 205lbs. 8.0oz. 92.508909fc; 29.00 BMI Method:Stated General Appearance: No Apparent Distress, WD/WN HEENT: PERRL/EOMI, Pharynx Normal Neck: Normal Inspection, Supple Respiratory: Lungs Clear, Normal Breath Sounds, No Respiratory Distress Cardiovascular: Regular Rate, Rhythm, No Edema, No Murmur Gastrointestinal: Normal Bowel Sounds, Non Tender, Soft Extremity: Normal Inspection, Non Tender, No Pedal Edema Neurologic/Psychiatric: Alert, Oriented x3, No Motor/Sensory Deficits, Normal Mood/Affect Skin: Normal Color, Warm/Dry Results Results/Procedures Labs Laboratory Tests 12/05/21 07:05 Patient resulted labs reviewed. Imaging: Reviewed Imaging Report Assessment/Plan Admission Diagnosis Chest pain Admission Status: Observation Assessment and Plan Chest pain CAD HTN HLD T2DM Troponin normal x2 Cardiology consulted Left heart catheterization today Sliding scale insulin DVT prophylaxis: Lovenox Diagnosis/Problems Diagnosis/Problems (1) Chest pain Status: Acute (2) HTN (hypertension) Status: Chronic (3) HLD (hyperlipidemia) Status: Chronic (4) T2DM (type 2 diabetes mellitus) Status: Chronic (5) CAD (coronary artery disease) Status: Chronic Clinical Quality Measures AMI/AHF: ASA po Prior to arrival: KALANI Hernandez MD Dec 05, 2021 19:03
[2021-12-06] VITALS: BP 137/73
[2021-12-06 04:00] VITALS: BP 149/82
[2021-12-06 05:09] LABS: TRIGLYCERIDES 109 MG/DL (<150); VLDL CHOLESTEROL 22 MG/DL (5-40)
[2021-12-06 05:14] LABS: CHOLESTEROL 121 MG/DL (< 200)
[2021-12-06 05:15] LABS: HDL CHOLESTEROL 35 MG/DL (40-60)
[2021-12-06] MEDS ORDERED: ATOR80TA76 PO (08:04)
[2021-12-06] MEDS ORDERED: ASPI81TA64 PO (08:04)
[2021-12-06] MEDS ORDERED: CRV25T PO (08:04)
[2021-12-06] MEDS ORDERED: CLOP75TA28 PO (08:04)
[2021-12-06 08:49] LABS: HEMATOCRIT 35 % (40-54); HEMOGLOBIN 11.3 g/dL (13.3-17.7); MEAN CORPUSCULAR HEMOGLOBIN 28 pg (25-34); MEAN CORPUSCULAR HGB CONC 32 g/dL (32-36); MEAN CORPUSCULAR VOLUME 87 fL (80-99); MEAN PLATELET VOLUME 10.7 fL (9.0-12.2); PLATELET COUNT 208 10^3/uL (130-400); WHITE BLOOD COUNT 6.3 10^3/uL (4.3-11.0)
[2021-12-06 08:55] VITALS: BP 140/77
[2021-12-06] MEDS: inSUlin ASPART (NovoLOG) 1 UNIT/0.01 ML (CHARGE PER UNIT) SC SCH ×4 (08:55→10:46)
[2021-12-06] MEDS ORDERED: CLOPIDOGREL 75 MG (PLAVIX) TABLET PO SCH (09:00)
[2021-12-06] MEDS ORDERED: LOSARTAN 50 MG (COZAAR) TAB PO SCH (09:00)
[2021-12-06] MEDS ORDERED: ASPIRIN 81 MG CHEW (CHILDREN'S ASA) PO SCH (09:00)
[2021-12-06] MEDS ORDERED: amLODIPine 5 MG (NORVASC) TAB PO SCH (09:00)
[2021-12-06] MEDS: NS IV 1000 ML 1,000 ML IV SCH (09:05)
--- NOTE | 2021-12-06 09:35 | Progress Note - Cardiology ---
Cardiology SOAP Progress Note Subjective: No cp or palp or syncope or shortness of breath No groin or leg discomfort Wishes to go home Objective: I&O/Vital Signs 12/05/21 12/06/21 12/06/21 12/06/21 23:59 00:00 01:00 04:00 Temp 36.6 36.4 Pulse 71 64 65 Resp 19 17 B/P (MAP) 137/73 (94) 149/82 (104) Pulse Ox 97 96 99 O2 Delivery Room Air Nasal Cannula Room Air O2 Flow Rate 2.00 12/06/21 12/06/21 12/06/21 12/06/21 04:00 07:00 07:55 08:36 Pulse 71 Pulse Ox 99 97 O2 Delivery Nasal Cannula Room Air Nasal Cannula O2 Flow Rate 2.00 2.00 12/06/21 08:55 Temp 36.0 Pulse 74 Resp 19 B/P (MAP) 140/77 (98) Pulse Ox 95 O2 Delivery Room Air 12/05/21 23:59 Intake Total 400 ml Output Total 500 ml Balance -100 ml Weight (Pounds): 205 Weight (Ounces): 8.0 Weight (Calculated Kilograms): 92.072715 Condition: DP/PT pulses palpable Bruising: mild bruising Constitutional: AAO x 3, well-developed, well-nourished Respiratory: No accessory muscle use; other (good, bilat air entry) Cardiovascular: regular rate-rhythm, S1 and S2, systolic murmur (soft LEATHA at card base) Gastrointestional: No tender; soft; No guarding, No rebound; audible bowel najma nds Extremities: other (chronic intermittent ankle swelling, more on R ankle); No clubbing Skin: No rash on exposed areas, No ulcerations on exposed areas Results/Procedures: Labs Laboratory Tests 12/05/21 13:20: Troponin I < 0.028 12/05/21 15:52: Glucometer 65L 12/05/21 21:54: Glucometer 235H 12/06/21 04:09: White Blood Count 6.3, Red Blood Count 4.00L, Hemoglobin 11.3L, Hematocrit 35L, Mean Corpuscular Volume 87, Mean Corpuscular Hemoglobin 28, Mean Corpuscular Hemoglobin Concent 32, Red Cell Distribution Width 13.3, Platelet Count 208, Mean Platelet Volume 10.7, Triglycerides Level 109, Cholesterol Level 121, LDL Cholesterol Direct 70, VLDL Cholesterol 22, HDL Cholesterol 35L 12/06/21 05:33: Glucometer 118H Laboratory Tests 12/05/21 07:05 12/06/21 04:09 A/P: Assessment: Chest discomfort - noncardiac: no evidence of ac FL, stable cor status on card cath of 12/05/21 (see below) CAD - coronary angiography on 10/04/[address] Sarmiento which showed moderate to severe lesions in the mid RCA FFR was 0.86 which is acceptable therefore PCI was deferred. Patent left main. LAD has diffuse severe disease in the entire length especially in the mid and distal segments. Left circumflex artery has a patent stent in the distal left circumflex artery with diffuse distal disease. A first OM 1 artery has severe 90 percent stenosis at the ostium. And then has another stent with severe in-stent stenosis. This was treated with a 2.5X 12 mm balloon. Excellent results with 20 percent residue stenosis. Normal LV function with no wall motion abnormalities. - Most recent cardiac cath of 05-19-[address] Sarmiento showed severe 99% ISR of the stent in the mid segment of the OM1 treated successfully with PTCA - Echo 05/19/2019 LVEF 55-65%, Grade I DD. LA dilated. Trivial AI. - cath of 12/05/21: Diffuse mild to moderate coronary artery disease involving all coronary vessels. Patent stents in the distal left circumflex and in the mid portion of the second obtuse marginal. Multiple stenoses up to 50% in all coronary vessels. Total or subtotal occlusion of multiple distal branches of the right coronary, unchanged from study of 2019. Normal left ventricular end- diastolic pressure. Normal global left ventricular systolic function with ejection fraction approximately 55% to 60%. HTN - controlled HLD - statin tx - managed by PCP DM 2 - managed by PCP Plan: * We reviewed and discussed with him his cath findings * Risk factor mod discussed * Plavix increased to daily * Continue other regimen * Outpt f/u advised * Advised pcp f/u for eval for other causes of cp Clinical Quality Measures AMI/AHF: ASA po Prior to arrival: NATALEE Santos MD FACP [facility] Dec 06, 2021 09:35
[2021-12-06 09:59] LABS: CALCIUM 8.9 MG/DL (8.5-10.1); CREATININE SERUM 0.9 MG/DL (0.60-1.30); POTASSIUM 4.1 MMOL/L (3.6-5.0)
[2021-12-06 10:27] VITALS: BP 154/77
--- NOTE | 2021-12-06 21:22 | Discharge Summary ---
Discharge Summary Hospital Course Problems/Dx: (1) Chest pain Status: Acute (2) HTN (hypertension) Status: Chronic (3) HLD (hyperlipidemia) Status: Chronic (4) T2DM (type 2 diabetes mellitus) Status: Chronic (5) CAD (coronary artery disease) Status: Chronic Hospital Course Date of Admission: Dec 05, 2021 at 09:14 Admission Diagnosis : Chest pain Family Physician/Provider: Latosha Villatoro MD Date of Discharge: 12/06/21 Discharge Diagnosis: CAD Hospital Course: Yonis Nolasco is a 56 year old male with PMH HTN, HLD, T2DM, CAD s/p CABG, who presented with chest pain. Cardiology was consulted and assisted with his care. He underwent a left heart catheterization which showed no acute obstructive coronary artery disease. His Plavix was increased to daily. He was started on Lipitor. His Coreg was increased. He was started on Aspirin. His symptoms resolv ed. He was discharged home in stable condition. Labs and Pending Lab Test: Laboratory Tests 12/05/21 21:54: Glucometer 235H 12/06/21 04:09: White Blood Count 6.3, Red Blood Count 4.00L, Hemoglobin 11.3L, Hematocrit 35L, Mean Corpuscular Volume 87, Mean Corpuscular Hemoglobin 28, Mean Corpuscular Hemoglobin Concent 32, Red Cell Distribution Width 13.3, Platelet Count 208, Mean Platelet Volume 10.7, Sodium Level 139, Potassium Level 4.1, Chloride Level 106, Carbon Dioxide Level 21, Anion Gap 12, Blood Urea Nitrogen 10, Creatinine 0.90, Estimat Glomerular Filtration Rate 100, BUN/Creatinine Ratio 11, Glucose Level 120H, Calcium Level 8.9, Triglycerides Level 109, Cholesterol Level 121, LDL Cholesterol Direct 70, VLDL Cholesterol 22, HDL Cholesterol 35L 12/06/21 05:33: Glucometer 118H Home Meds Active Coreg (Carvedilol) 25 Mg Tab 25 Mg PO BID Children's Aspirin (Aspirin) 81 Mg Tab.chew 81 Mg PO DAILY Atorvastatin Calcium 80 Mg Tablet 80 Mg PO HS Clopidogrel (Clopidogrel Bisulfate) 75 Mg Tablet 75 Mg PO DAILY Reported Cetirizine HCl 10 Mg Tablet 10 Mg PO DAILY Nexium 24Hr (Esomeprazole Magnesium) 20 Mg Tablet.dr 20 Mg PO DAILY PRN Glimepiride 2 Mg Tablet 2 Mg PO DAILY Losartan Potassium 50 Mg Tablet 50 Mg PO DAILY Multivitamin 1 Each Tablet 1 Each PO DAILY Januvia (Sitagliptin Phosphate) 50 Mg Tablet 50 Mg PO BID Amlodipine Besylate 10 Mg Tablet 10 Mg PO DAILY Metformin HCl 1,000 Mg Tablet 500 Mg PO 1700 TAKES 1/2 (1000MG) TABLET Metformin HCl 1,000 Mg Tablet 1,000 Mg PO BID Assessment/Pt Instructions See instructions Discharge Planning: >30 minutes discharge planning Discharge Instructions Discharge Diet: Low Sodium Diet Activity as Tolerated: Yes Consultations Cardiology Discharge Physical Examination Vital Signs Vital Signs Date Time Temp Pulse Resp B/P (MAP) Pulse Ox O2 Delivery O2 Flow Rate FiO2 12/06/21 10:27 69 12 154/77 97 Room Air 12/06/21 08:55 36.0 12/06/21 08:36 2.00 General Appearance: No Apparent Distress, WD/WN Respiratory: Lungs Clear, No Respiratory Distress Cardiovascular: Regular Rate, Rhythm, No Murmur Gastrointestinal: Normal Bowel Sounds, Soft Extremity: Normal Inspection, No Pedal Edema Skin: Normal Color, Warm/Dry Neurologic/Psychiatric: Alert, No Motor/Sensory Deficits Allergies: Coded Allergies: lisinopril (Verified Allergy, Intermediate, COUGH, 09/08/17) Copy Copies To 1: LATOSHA VILLATORO MD Discharge Summary Date of Admission Dec 05, 2021 at 09:14 Date of Discharge Dec 06, 2021 at 11:04 Discharge Date: Dec 06, 2021 Discharge Time: 11:04 Admission Diagnosis Chest pain Consults/Procedures Consulations Cardiology Procedures Left heart cath Discharge Diagnosis Chest pain CAD HTN HLD T2DM (1) Chest pain Status: Acute (2) HTN (hypertension) Status: Chronic (3) HLD (hyperlipidemia) Status: Chronic (4) T2DM (type 2 diabetes mellitus) Status: Chronic (5) CAD (coronary artery disease) Status: Chronic Clinical Quality Measures AMI/AHF: ASA po Prior to arrival: KALANI Hernandez MD Dec 06, 2021 21:13
== END 2021-12-06 11:04 | disposition home or self-care (01) ==
LOC: EDUNIT# 07:02 → ER 07:04 → CSD 09:14
PROVIDERS: ADMIT Internal Medicine; ATTEND Internal Medicine
DX: R07.89 Other chest pain (principal); I25.110 Atherosclerotic heart disease of native coronary artery with unstable angina pectoris; T82.855D Stenosis of coronary artery stent, subsequent encounter; E11.9 Type 2 diabetes mellitus without complications; I10 Essential (primary) hypertension; E78.5 Hyperlipidemia, unspecified; Z79.84 Long term (current) use of oral hypoglycemic drugs; Z79.82 Long term (current) use of aspirin; Z88.8 Allergy status to other drugs, medicaments and biological substances; Z83.3 Family history of diabetes mellitus; Z82.49 Family history of ischemic heart disease and other diseases of the circulatory system
CPT/HCPCS: 71045; 80053; 82947; 83735; 83874; 84484; 85025; 85610; 85730; 93005; 93041; 93458; C1760; C1894; 36415; 80048; 80061; 85027